=== PATIENT | female | born 1960 | race Caucasian/White ===

== ENCOUNTER 2024-12-29 16:28 | Emergency (ER) | payer MEDICARE, SELFPAY ==
--- OUTSIDE RECORDS SUMMARY | 2024-06-15 09:14 | XMS_ITS ---
Author Organization [facility] Address [address] [place] [address] Care Team Providers Care Child Abuse Worker Name Role Phone Omar Villalobos Unavailable [phone] Encounters Encounter Location Date Provider Diagnosis [facility] [address] [place] [address] 06/15/2024 Omar Villalobos PLAN OF TREATMENT No Information
--- OUTSIDE RECORDS SUMMARY | 2024-12-28 14:42 | XMS_ITS | Encounter Summary ---
Author Organization [facility] Address [address] [place] [address] Care Team Providers Care Hotel Lobby Concierge Name Role Phone Unavailable Primary Care Provider Unavailabl e Encounter Details Date Type Department Care Team (Latest Contact Info) Description 12/28/2024 2:42 PM CDT - 12/28/2024 11:59 PM CDT Hospital Encounter [facility] Imaging Services [address] [id number] Barak Shepherd PA [address] [phone] Arrived Discharge Disposition: Home or Self Care Social History Tobacco Use Types Packs/Day Years Used Date Smoking Tobacco: Never Smokeless Tobacco: Never Alcohol Use Standard Drinks/Week Comments Yes 2 (1 standard drink = 0.6 oz pure alcohol) 2 beers on the weekend but not every weekend Comments No Sex and Gender Information Value Date Recorded Sex Assigned at Not on file Legal Sex Female 2:39 PM CDT Gender Identity Not on file Sexual Orientation Not on file documented as of this encounter Medications at Time of Discharge hydroCHLOROthiazi de 50 mg tablet Take 1 Tablet (50 mg) by mouth daily. 90 Tablet 1 11/21/2024 predniSONE (DELTASONE) 20 mg tablet Take 2 Tablets (40 mg) by mouth daily. 6 Tablet 11/14/2024 cimetidine (TAGAMET) 300 mg tablet Take 1 Tablet (300 mg) by mouth 2 times daily. 3 Tablet 11/14/2024 levothyroxine 88 mcg tablet Take 88 mcg by mouth daily in the morning. aspirin (Jen Low Dose Aspirin) 81 mg Tablet, Delayed Release (E.C.) Take 1 Tablet (81 mg) by mouth daily. 30 Tablet 3 11/11/2024 atorvastatin (LIPITOR) 10 mg tablet TAKE 1 TABLET(10 MG) BY MOUTH DAILY WITH SUPPER 30 Tablet 2 05/09/2022 metoprolol succinate (TOPROL XL) 25 mg Extended Release 24 hour tablet Take 1 Tablet (25 mg) by mouth daily. 30 Tablet 04/09/2022 documented as of this encounter Plan of Treatment Upcoming Encounters Date Type Department Care Team (Late st Contact Info) Description 12/30/2024 3:00 PM CDT Office Visit [facility] Heart and Vascular - [address] [facility] [address] [address] [facility] [address] [place] [address] documented as of this encounter Procedures Procedure Name Priority Date/Time Associated Diagnosis Comments XR RIBS UNILATERAL 2 VW LEFT Routine 12/28/2024 3:02 PM CDT Rib pain documented in this encounter Results * XR RIBS UNILATERAL 2 VW LEFT (12/28/2024 3:02 PM CDT) Anatomical Region Laterality Modality Chest Computed Radiogr aphy 12/28/2024 3:02 PM CDT Impressions 12/29/2024 8:00 AM CDT IMPRESSION: No osseous abnormalities of the left ribs. Narrative 12/29/2024 8:00 AM CDT Unilateral left ribs HISTORY: Rib pain Four views of the left ribs demonstrate no osseous abnormalities. No rib fractures are seen. There is no pneumothorax or pleural effusion. Procedure Note Norma Rasmussen MD - 12/29/2024 Unilateral left ribs HISTORY: Rib pain Four views of the left ribs demonstrate no osseous abnormalities. No rib fractures are seen. There is no pneumothorax or pleural effusion. IMPRESSION: No osseous abnormalities of the left ribs. us Barak Ced [facility] ORDER SOPHIA Final Result documented in this encounter Visit Diagnoses Diagnosis Rib pain Chest pain, unspecified documented in this encounter
[2024-12-29] VITALS (10 sets, daily range): BP systolic 131–164; BP diastolic 60–73; PULSE 64–79; RESP 12–20; TEMP 37.2; O2SAT 96–100
--- NOTE | ~2024-12-29 | CT_ITS ---
EXAMINATION: CT abdomen pelvis wo con DATE: 12/29/2024 18:52 INDICATION: Abdomen pain. Diarrhea. TECHNIQUE: Computed tomography (CT) of the abdomen and pelvis was performed without intravenous contrast. The dose-length product was 212.33 mGy-cm. Automated exposure control and iterative reconstruction technique were employed. COMPARISON: CT dated 09/04/2010 FINDINGS: Lung bases unremarkable. Heart size normal. No significant pleural or pericardial effusion. Status post cholecystectomy. The liver, spleen, pancreas, adrenal glands and kidneys are unremarkable. No significant vascular abnormality. The dose length can't lymphadenopathy. Nonobstructive bowel gas pattern. No evidence for hernia. 3 lag screws transfix the right femoral neck. No free air or free fluid. IMPRESSION: 1. No acute abdominal abnormality. Reviewed, dictated and finalized at location O.
--- OUTSIDE RECORDS SUMMARY | 2024-12-29 16:55 | XMS_ITS | Encounter Summary ---
Author Organization [facility] Address [address] [place] [address] Care Team Providers Care Art Editor Name Role Phone Barak Shepherd Primary Care Provider [phone] Reason for Referral * Diagnostic Imaging (Routine) - Authorized Specialty Diagnoses / Procedures Referred By Contac t Referred To Contact Diagnoses Post-menopause Procedures Dexa Axial Skeleton Bone Density 1 or 2 Site Barak Shepherd PA [address] [address] Phone: tel: fax: External Order Referral ID Status Reason Start Date Expiration Date V isits Requested Visits Authorized [id number] Authorized 12/28/2024 01/27/2026 1 1 Reason for Visit * Reason Onset Date Comments Medical Question/Miscellaneous 12/27/2024 Encounter Details Date Type Department Care Team (Late st Contact Info) Description 12/27/2024 Telephone [facility] Family Medicine [address] [facility] [address] [place] [address] Barak Shepherd PA [address] [address] Medical Question/Miscellaneous Social History Tobacco Use Types Packs/Day Years Used Date Smoking Tobacco: Never Smokeless Tobacco: Never Alcohol Use Standard Drinks/Week Comments Never 0 (1 standard drink = 0.6 oz pur e alcohol) PHQ-2 Answer Date Recorded PHQ-2 Total Score (If total score is 3 or more points, staff should administer the PHQ-9) 0 12/27/2024 AUDIT-C Answer Date Recorded Q1: How often do you have a drink containing alcohol? Never 12/27/2024 Q2: How many drinks containi ng alcohol do you have on a typical day when you are drinking? Patient does not drink Q3: How often do you have si x or more drinks on one occasion? 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 Never 12/27/2024 2:51 PM CDT Conchita Saba MA Q2: How many drinks containing alcohol do you have on a typical day when you are drinking? Patient does not drink 12/27/2024 2:51 PM CDT Conchita Saba MA Q3: How often do you have six or more drinks on one occasion? Never 12/27/2024 2:51 PM CDT Conchita Saba MA documented as of this encounter Miscellaneous Notes * Telephone Encounter - Lizbet Beltran MA - 12/28/2024 8:35 AM CDT Pt is aware, she will go to pharmacy to get the prevnar 20 vaccine. Order for bone density ordered for [facility]. * Telephone Encounter - Gricelda Estrada - 12/28/2024 8:33 AM CDT Call Back Caller???s Concern: Patient returning call to CURTIS Arango reviewed notes and warm transferred her to the backline. Does message need to be routed? No * Telephone Encounter - Conchita Saba MA - 12/27/2024 4:25 PM CDT Left vm for pt to return call, please warm transfer. * Telephone Encounter - Conchita Saba MA - 12/27/2024 4:24 PM CDT Per ROMY EDWARDS: I forgot to discuss Prevnar 20 and DEXA scan. Could you please call patient and notify her that sheis due for both. documented in this encounter Plan of Treatment Scheduled Orders Name Type Priority Associated Diagnoses Orde r Schedule Dexa Axial Skeleton Bone Density 1 or 2 Site Imaging Schedule Routine, Read Routine (OP Routine) Post-menopause Expected: 12/28/2024, Expires: 12/28/2025 documented as of this encounter Visit Diagnoses Diagnosis Post-menopause- Primary Asymptomatic postmenopausal status (age-related) (natural) documented in this encounter Additional Health Concerns Infection Onset Date Last Indicated Resolved Time C. difficile Comment:AUTOMATED NOTE (ADD): C. Difficile - asa, [facility], [id number], ThuApr 07 09:45:41 BLOWER INSULATOR 201004/04/2011 04/04/2011 documented as of this encounter Care Teams Art Editor Relationship Specialty Start Date End Date Barak Shepherd PA [address] [address] PCP - General Family Medicine 05/25/23 documented as of this encounter
--- OUTSIDE RECORDS SUMMARY | 2024-12-29 16:55 | XMS_ITS | Encounter Summary ---
Author Organization [facility] Address [address] [place] [address] Care Team Providers Care Targeting Acquisition Officer Name Role Phone Aarti Cid MD Primary Care Provider [phone] Encounter Details Date Type Department Care Team (Late Contact Info) Description 08/20/2017 Lab Requisition [facility] Laboratory Services [address] [facility] [address] [place] [address] [place]els[place] Woodson [place] [id number] [place] [address] [place] [address] Social History Tobacco Use Types Packs/Day Years Used Date Smoking Tobacco: Never Smokeless Tobacco: Never Alcohol Use Standard Drinks/Week Comments Yes 2 (1 standard drink = 0.6 oz pure alcohol) 2 beers on the weekend but not every weekend Comments Unknown Sex and Gender Information Value Date Recorded Sex Assigned at Not on file Legal Sex Female 2:39 PM CDT Gender Identity Not on file Sexual Orientation Not on file documented as of this encounter Plan of Treatment Upcoming Encounters Date Type Department Care Team (Late st Contact Info) Description 12/30/2024 3:00 PM CDT Office Visit [facility] Heart and Vascular - [address] [facility] [address] [place] [address] documented as of this encounter Procedures Procedure Name Priority Date/Time Associated Diagnosis Comments HEPATITIS B SURFACE AB, QUANT Routine 08/20/2017 7:20 AM CDT documented in this encounter Results * HEPATITIS B SURFACE AB, QUANT (08/20/2017 7:20 AM CDT) HEPATITIS B SURF AB,QN 1,000.0 mlU/mL 08/20/2017 8:02 PM CDT [facility] HEPATITIS B SURFACE AB INTERP Reactive See Interp 08/20/2017 8:02 PM CDT [facility] Blood Collection / Unknown 08/20/2017 7:20 AM CDT 08/20/2017 4:09 PM CDT Narrative [facility] - 08/20/2017 8:02 PM CDT Patient has immunity to Hepatitis B virus. This assay is used to determine immune status to Hepatitis B as greater than or equal to 10 mIU/mL as per CDC guidelines (MMWR:vol 55: RR-16, 2006). us Kelsie Woodson MD CHEMISTRY ORDERABLES Final [facility]ul t [id number] [address] [facility] [place] [address] documented in this encounter Visit Diagnoses Not on filedocumented in this encounter Additional Health Concerns Infection Onset Date Last Indicated Resolved Time R/O C. diff 07/06/2020 07/06/2020 07/06/2020 2:51 PM CDT documented as of this encounter Care Teams Targeting Acquisition Officer Relationship Specialty Start Date End Date Aarti Cid MD [address] [place] [address] PCP - General Internal Medicine 06/02/17 11/10/24 documented as of this encounter
--- OUTSIDE RECORDS SUMMARY | 2024-12-29 16:55 | XMS_ITS | Clinical Summary ---
Author Organization [facility] Address [address] [place] [address] Phone Care Team Providers Care Practice Lead Name Role Phone Unavailable Primary Care Provider Unavailabl e Allergies Active Allergy Reactions Criticality Noted Date Comments Ciprofloxacin Hives High 01/15/2019 Iodinated Contrast Media Itching Low 01/15/2019 Penicillins Hives High 06/02/2017 Sulfa (Sulfonamide Antibiotics) Hives High 12/20 Sulfur Hives High 06/02/2017 Medications metoprolol succinate (TOPROL XL) 25 mg Extended Release 24 hour tablet Take 1 Tablet (25 mg) by mouth daily. 30 Tablet 04/09/2022 Active atorvastatin (LIPITOR) 10 mg tablet TAKE 1 TABLET(10 MG) BY MOUTH DAILY WITH SUPPER 30 Tablet 2 05/09/2022 Active levothyroxine 88 mcg tablet Take 88 mcg by mouth daily in the morning. Active aspirin (Jen Low Dose Aspirin) 81 mg Tablet, Delayed Release (E.C.) Take 1 Tablet (81 mg) by mouth daily. 30 Tablet 3 11/11/2024 Active predniSONE (DELTASONE) 20 mg tablet Take 2 Tablets (40 mg) by mouth daily. 6 Tablet 11/14/2024 Active cimetidine (TAGAMET) 300 mg tablet Take 1 Tablet (300 mg) by mouth 2 times daily. 3 Tablet 11/14/2024 Active hydroCHLOROthia zide 50 mg tablet Take 1 Tablet (50 mg) by mouth daily. 90 Tablet 1 11/21/2024 Active Active Problems Problem Noted Date Diagnosed Date Ventral hernia without obstruction or gangrene 0 06/28/2020 History of seasonal allergies 11/16/2019 Prediabetes 06/28/2019 History of partial colectomy ( diverticulitis) 0 07/31/2017 Thyroid disease 06/05/2017 History of malignant neoplasm of appendix 2013 History of atrial septal defect repair 5 Osteoporosis Resolved Problems Problem Noted Date Diagnosed Date Resolved Date C. difficile colitis 06/05/2017 018 Overview (06/05/2017): History x3 with complications Diverticulitis of intestine with abscess and bleeding 06/05/2017 07/31/2017 History of Clostridium difficile colitis 07/31/2012 06/28/2020 Overview (07/31/2017): Takes Flagyl w/probiotics if anbx are needed Encounters Date Type Department Care Team Description 12/28/2024 2:42 PM CDT - 12/28/2024 11:59 PM CDT Hospital Encounter [facility] Imaging Services [address] [address] Barak Shepherd PA Arrived Discharge Disposition: Home or Self Care 12/27/2024 External Device Data STL ABSTRACTION Provider, Abstract 12/16/2024 2:04 PM CDT - 12/16/2024 11:59 PM CDT Hospital Encounter [facility] Heart and Vascular [facility] [address] [place] [address] Nicolas Grant MD Discharge Disposition: Home or Self Care 11/23/2024 External Device Data STL ABSTRACTION Provider, Abstract 11/22/2024 External Device Data STL ABSTRACTION Provider, Abstract 11/19/2024 11:01 AM CDT - 11/19/2024 11:59 PM CDT Hospital Encounter [facility] Non Invasive Cardiology [address] [place] [address] Nicolas Grant MD Discharge Disposition: Home or Self Care 11/19/2024 11:00 AM CDT - 11/19/2024 11:59 PM CDT Hospital Encounter [facility] Invasive Cardiology [address] [place] [address] Nicolas Grant MD Discharge Disposition: Home or Self Care 11/17/2024 12:30 PM CDT - 11/17/2024 11:59 PM CDT Hospital Encounter [facility] [place] [address] [place] [address] Nicolas Grant MD Discharge Disposition: Home or Self Care 11/17/2024 Results Follow-Up [facility] Heart and Vascular - [address] [place] [address] Nicolas Grant MD CTA CHEST W AND/OR WO CONTRAST 11/15/2024 10:00 AM CDT Video Visit [facility] Heart and Vascular - [address] [place] [address] Beth Dick, GIBRAN Palpitations (Primary Dx); Other chest pain; HTN (hypertension), benign; H/O atrial septal defect repair 11/15/2024 Telephone [facility] Heart and Vascular - [address] [place] [address] Nicolas Grant MD Abnormal Cardiovascular Test 11/14/2024 Telephone [facility] Heart and Vascular - [address] [place] [address] Nicolas Grant MD Contrast Premedication 11/14/2024 Results Follow-Up [facility] - [address] [place] [address] Nicolas Grant MD BRAIN NATRIURETIC PEPTIDE, BNP OR PROBNP, D-DIMER, ECHO COMPLETE W BUBBLE STUDY, Additional followed-up results: 2 11/11/2024 3:00 PM CDT Office Visit [facility] Heart and Vascular - [address] [place] [address] Nicolas Grant MD Palpitations (Primary Dx); Other chest pain; HTN (hypertension), benign; Hypercholesteremia; H/O atrial septal defect repair 11/02/2024 External Device Data STL ABSTRACTION Provider, Abstract 11/02/2024 Orders Only [facility] Heart and Vascular - [address] [place] [address] Provider, Abstract 11/02/2024 External Device Data STL ABSTRACTION Provider, Abstract 11/01/2024 External Device Data STL ABSTRACTION Provider, Abstract 10/07/2024 2:30 PM CDT Ancillary Procedure [facility] [address] [place] [address] Rivas Smith MD Encounter for screening mammogram for malignant neoplasm of breast from Last 3 Months Immunizations Immunization Administration Dates Next Due (RelayRides)(12 YR UP) COVID-19 VACCINE - EMERGENCY USE AUTHORIZATION, MRNA, [id number](PF) 30 MCG/0.3 ML IM SUSP 01/17/2021,04/29/2020,04/08/2020 (SHINGRIX)(50 YRS UP) ZOSTER VACCINE RECOMBINANT, 0.5 ML, IM 01/06/2021,10/13/2020 Influenza Seasonal Unspecifi ed Formulation IM 01/25/2021,12/19/2020,01/24/2020,2019,01/05/2019,02/18/2018,01/08/2018,1 06/11/2016 Family History Medical History Relation Name Comments Heart Attack Father giuseppe Heart Disease Father giuseppe Hypertension Father giuseppe Breast Cancer Maternal Aunt Cancer Mother tyson pancreatic canc er High Cholesterol Mother tyson Pancreatic Cancer Mother tyson SIDS Son VASU Relation Name Status Comments Father giuseppe Maternal Aunt Mother tyson Son VASU Alive Social History Tobacco Use Types Packs/Day Years Used Date Smoking Tobacco: Never Smokeless Tobacco: Never Tobacco Cessation:Counseling Given: Not Answered Alcohol Use Standard Drinks/Week Comments Yes 2 (1 standard drink = 0.6 oz pure alcohol) 2 beers on the weekend but not every weekend Comments No Sex and Gender Information Value Date Recorded Sex Assigned at Not on file Legal Sex Female 2:39 PM CDT Gender Identity Not on file Sexual Orientation Not on file Last Filed Vital Signs Vital Sign Reading Time Taken Comments Blood Pressure 143/65 11/19/2024 12:00 PM CDT Pulse 60 11/15/2024 9:49 AM CDT Temperature 36.8 C (98.2 F) 11/16/2019 9:53 AM CDT Respiratory Rate 17 01/15/2019 12:18 PM CDT Oxygen Saturation 97% 11/11/2024 2:59 PM CDT Inhaled Oxygen Concentration - - Weight 57.6 kg (127 lb) 11/15/2024 9:49 AM CDT Height 167.6 cm (5' 6) 11/15/2024 9:49 AM CDT Body Mass Index 20.5 11/15/2024 9:49 AM CDT Plan of Treatment Upcoming Encounters Date Type Department Care Team (Late st Contact Info) Description 12/30/2024 3:00 PM CDT Office Visit [facility] Heart and Vascular - [address] [facility] [address] [place] [address] Health Maintenance Due Date Last Done Comments DTAP/TDAP/TD VACCINES (1 - Tdap) 1977 FIT-DNA Q 3 years 09/02/2003 FIT/FOBT Q 1 year 09/02/2003 Flex Sig/CT Colonography Q 5 years 09/02/2003 PNEUMOCOCCAL VACCINE 50+ YEA RS (1 of 1 - PCV) 2008 OSTEOPOROSIS SCREENING 09/02/2023 02/03/2014 Medicare Advantage (NM) Preventative Visit/Annual Wellness Visit 04/20/2024 06/28/2020, 06/28/2019, 09/28/2017, Additional history exists COLORECTAL SCREENING 05/21/2024 05/21/2014 (Previously completed), 04/18/2010, 04/20/2009, Additional history exists Colorectal Cancer Screening 05/21/2024 INFLUENZA VACCINE (#1) 2024 , 01/15/2023, 01/29/2022, Additional history exists COVID-19 Vaccine (4 - 2024-2 6 season) 2024 01/17/2021, 04/29/2020, 04/08/2020 BREAST CANCER SCREENING 10/07/2025 10/08/19, 10/07/2024, 10/07/2024, Additional history exists RSV VACCINE (60+ or ) (1 - 1-dose 75+ series) 2033 ZOSTER VACCINE Completed 01/06/2021, 10/13/2020 Procedures Procedure Name Priority Date/Time Associated Diagnosis Comments XR RIBS UNILATERAL 2 VW LEFT Routine 12/28/2024 3:02 PM CDT Rib pain STRESS TEST EXERCISE TREADMILL Routine 12/16/2024 2:39 PM CDT Other chest pain HOLTER MONITOR Routine 11/24/2024 6:18 PM CDT Palpitations ECHO COMPLETE W BUBBLE STUDY Routine 11/19/2024 12:09 PM CDT Other chest pain H/O atrial septal defect repair CTA CHEST W AND/OR WO CONTRAST Stat 11/17/2024 12:54 PM CDT D-dimer, elevated POC CREATININE Routine 11/17/2024 12:48 PM CDT D-DIMER Routine 11/11/2024 3:58 PM CDT Palpitations Other chest pain BRAIN NATRIURETIC PEPTIDE, BNP OR PROBNP Routine 11/11/2024 3:58 PM CDT Palpitations Other chest pain UT ECG ROUTINE ECG W/LEAST 12 LDS W/I&R Routine 11/11/2024 3:00 PM CDT Palpitations MAMMO 3D JAYASHREE SCREEN BILAT W OR WO CAD Routine 10/07/2024 2:03 PM CDT Encounter for screening mammogram for malignant neoplasm of breast XR DEXA BONE DENSITY AXIAL 1 OR MORE SITES Routine 02/03/2014 ENDOSCOPY, COLON, SCREENING Routine 04/18/2010 from Last 3 Months or Most Recently Relevant to Health Maintenance Results * XR RIBS UNILATERAL 2 VW [...] [facility] ORDER SOPHIA Final Result * STRESS TEST EXERCISE TREADMILL (12/16/2024 2:39 PM CDT) EJECTION FRACTION EF: INTERFACE SYSTEM 12/16/2024 3:00 PM CDT Narrative INTERFACE SYSTEM - 12/16/2024 2:59 PM CDT [facility] Heart and Vascular Testing Stress Electrography Endy Protocol Patient: Sari Au Study ID: Gender: F : 1960 Age: 64 Race: RADHA Height 167.6cm Study Date: 12/16/2024 Weight: 57.6kg Access. #: [id number] BP: *Referring Physician:* Fadia Grant MD *Ordering Physician:* Fadia Grant MD revenue accounting manager: Nurse: RICARDO Indications: Chest pain. Shortness of breath Palpitations. History: Risk factors: Hypertension. Family history is significant for coronary artery disease. STUDY CONCLUSIONS: SUMMARY: - Stress ECG conclusions: The stress ECG is negative for ischemia. Rate abated PVC's noted. Godinez scoring: exercise time of 6 min 30 sec; maximum ST deviation of 0mm; no angina; resulting score is 7. This score predicts a low risk of cardiac events. - The patient did not complain of chest discomfort with exercise. - Normal hemodynamic response with exercise. - Stress data: Functional capacity is normal. Impressions: Maximal Exercise Treadmill Stress Test at 87% of predicted heart rate for age, negative for ischemia. Cardiac Anatomy: Baseline ECG: Sinus rhythm 82 bpm, incomplete right bundle branch block, PVC's. Stress protocol: - Baseline HR: 66bpm BP: 130/75 - Peak stress; 6 min 17 sec HR: 134bpm BP: 144/60 - Recovery; 5 min HR: 90bpm BP: 133/70 Stress results: Maximal heart rate during stress was 134bpm (87% of maximal predicted heart rate). The maximal predicted heart rate was 154bpm. The target heart rate was 131bpm. The target heart rate was achieved. The heart rate response to stress is normal. There is a normal resting blood pressure with an appropriate response to stress. The rate-pressure product for the peak heart rate and blood pressure was 02333ou Hg/min. The patient experienced no chest pain during stress. Functional capacity is normal. Treadmill exercise testing was performed using the Endy protocol. The patient exercised for 6 min 17 sec, to protocol stage 3, to a maximal work rate of 7.8mets. Exercise was terminated at the patient's request, moderate dyspnea, and moderate fatigue. Stress ECG: The stress ECG is negative for ischemia. Rate abated PVC's noted. Godinez scoring: exercise time of 6 min 30 sec; maximum ST deviation of 0mm; no angina; resulting score is 7. This score predicts a low risk of cardiac events. Procedure data: MCHOD Consent: The risks, benefits, and alternatives to the procedure were explained to the patient and informed consent was obtained. Procedure information: The patient arrived at the laboratory. A baseline ECG was recorded. Surface ECG leads and automatic cuff blood pressure measurements were monitored. Study completion: There were no complications. Endy protocol. Stress electrography. Birthdate: Patient birthdate: 1960. Age: Patient is 64year(s) old. Sex: gender: female. Height: 167.6cm. 66in. Weight: 57.6kg. 127lb. Body mass index: 20.5kg/m^2. Body surface area: 1.63m^2. Patient status: Outpatient. Study date: Study date: 12/16/2024. Study time: 03:00 PM. Location: Echo laboratory. Prepared and Electronically Authenticated Krishan Garrido [id number] Procedure Note Krishan Garrido MD - 12/16/2024 [facility] Testing Stress Electrography Endy Protocol Patient: Sari Au Study ID: Gender: Ruby : 1960 Age: 64 Race: RADHA Height 167.6cm Study Date: 12/16/2024 Weight: 57.6kg Access. #: [id number] BP: *Referring Physician:* Fadia Grant MD *Ordering Physician:* Fadia Grant MD revenue accounting manager: Nurse: RICARDO Indications: Chest pain. Shortness of breath Palpitations. History: Risk factors: Hypertension. Family history is significant for coronaryartery disease. STUDY CONCLUSIONS: SUMMARY: - Stress ECG conclusions: The stress ECG is negative for ischemia. Rateabated PVC's noted. Godinez scoring: exercise time of 6 min 30 sec; maximum ST deviation of 0mm; no angina; resulting score is 7. This score predicts alow risk of cardiac events. - The patient did not complain of chest discomfort with exercise. - Normal hemodynamic response with exercise. - Stress data: Functional capacity is normal. Impressions: Maximal Exercise Treadmill Stress Test at 87% of predictedheart rate for age, negative for ischemia. Cardiac Anatomy: Baseline ECG: Sinus rhythm 82 bpm, incomplete right bundle branchblock, PVC's. Stress protocol: - Baseline HR: 66bpm BP: 130/75 - Peak stress; 6 min 17 sec HR: 134bpm BP: 144/60 - Recovery; 5 min HR: 90bpm BP: 133/70 Stress results: Maximal heart rate during stress was 134bpm (87% ofmaximal predicted heart rate). The maximal predicted heart rate was 154bpm. Thetarget heart rate was 131bpm. The target heart rate was achieved. The heartrate response to stress is normal. There is a normal resting blood pressurewith an appropriate response to stress. The rate-pressure product for the peakheart rate and blood pressure was 55467gh Hg/min. The patient experienced nochest pain during stress. Functional capacity is normal. Treadmillexercise testing was performed using the Endy protocol. The patient exercised for6 min 17 sec, to protocol stage 3, to a maximal work rate of 7.8mets.Exercise was terminated at the patient's request, moderate dyspnea, and moderate fatigue. Stress ECG: The stress ECG is negative for ischemia. Rate abatedPVC's noted. Godinez scoring: exercise time of 6 min 30 sec; maximum ST deviationof 0mm; no angina; resulting score is 7. This score predicts a low risk of cardiac events. Procedure data: MCHOD Consent: The risks, benefits, and alternatives to the procedurewere explained to the patient and informed consent was obtained. Procedure information: The patient arrived at the laboratory. A baseline ECG was recorded. Surface ECG leads and automatic cuff blood pressuremeasurements were monitored. Study completion: There were no complications. Endy protocol. Stress electrography. Birthdate: Patient birthdate: 1960. Age: Patient is 64year(s) old. Sex: gender:female. Height: 167.6cm. 66in. Weight: 57.6kg. 127lb. Body mass index: 20.5kg/m^2. Body surface area: 1.63m^2. Patient status:Outpatient. Study date: Study date: 12/16/2024. Study time: 03:00 PM. Location:Echo laboratory. 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 Primary rhythm was Sinus Rhythm. Average heart rate was 76 bpm, Minimum heart rate was 56 bpm on Day :49:23 am, Max heart rate was 118 bpm on Day :45:37 am SVE(s): [place] was 0.74 %, 832 total SVE(s) SV Arrhythmia(s): 1 event(s), longest event 5 beats on :00:26 pm, fastest event 103 bpm on :00:26 pm PVC(s): [place] was 4.19 %, 4737 total PVC(s), 1 disparate morphologies Patient recorded 10 event(s) during the monitoring period Impression 1. Sinus rhythm, average rate 76 bpm 2. No significant bradycardia/pauses or AV block 3. Rare premature supraventricular beats, occasional premature ventricular beats (4.19%) 4. No episodes of atrial fibrillation/flutter, supraventricular tachycardia or ventricular tachycardia 5. Patient triggered symptomatic episodes included symptoms of shortness of breath, chest pain/pressure, dizziness/light headedness, heart racing/fluttering correlated to sinus rhythm and mild sinus tachycardia (100-120). 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 Primary rhythm was Sinus Rhythm. Average heart rate was 76 bpm, Minimumheart rate was 56 bpm on Day :49:23 am, Max heart rate was 118 bpm on Day:45:37 am SVE(s): [place] was 0.74 %, 832 total SVE(s) SV Arrhythmia(s): 1 event(s), longest event 5 beats on :00:26pm, fastest event 103 bpm on :00:26 pm PVC(s): [place] was 4.19 %, 4737 total PVC(s), 1 disparate morphologies Patient recorded 10 event(s) during the monitoring period Impression 1. Sinus rhythm, average rate 76 bpm 2. No significant bradycardia/pauses or AV block 3. Rare premature supraventricular beats, occasional premature ventricular beats (4.19%) 4. No episodes of atrial fibrillation/flutter, supraventriculartachycardia or ventricular tachycardia 5. Patient triggered symptomatic episodes included symptoms of shortnessof breath, chest pain/pressure, dizziness/light headedness, heart racing/fluttering correlated to sinus rhythm and mild sinus tachycardia (100-120). Electronically Signed On 12-04-2024 18:15:02 CDT by Garcia Cooper Nicolas Grant MD CARDIAC SERVICES ORDERA BLES Final Result INTERFACE SYSTEM Refer to clinic/hospital department * ECHO COMPLETE W BUBBLE STUDY (11/19/2024 12:09 PM CDT) EJECTION FRACTION 55 INTERFACE SYSTEM 11/19/2024 11:0 3 AM CDT Narrative INTERFACE SYSTEM - 11/19/2024 12:34 PM CDT Transthoracic Echocardiogram Patient: Sari Au Study ID: [id number] Gender: F : 1960 Age: 64 Race: CAU Height 167.6cm Study Date: 11/19/2024 Weight: 57.6kg Access. #: [id number] BP: 143 / 65 *Referring Physician:* Fadia Grant MD, MD, M. Kiran *Ordering Physician:* Fadia Grant MD *Branch Sales And Service Representative:* Ruthann Arriaga RUST revenue accounting manager: Nurse: Indications: Other chest pain, H/O atrial septal defect repair. History: PMH: Syncope. Risk factors: Hypertension. STUDY CONCLUSIONS: SUMMARY: - Left ventricle: The cavity size was normal. Wall thickness was normal. Global systolic function is normal. The estimated ejection fraction is 55-60%. For Epic reporting: the left ventricular ejection fraction is 55% . - Aortic valve: There is thickening, consistent with sclerosis, without stenosis. - Mitral valve: There is mild thickening. Mild regurgitation. - Left atrium: The atrium is normal in size. - Right ventricle: The cavity size is normal. Systolic function is normal. - Atrial septum: Agitated saline contrast study at baseline or with provocation, shows no hgxkk-[id number] atrial level shunt. - Tricuspid valve: Mild regurgitation. - Pulmonary arteries: The peak systolic pressure is 20mm Hg. Cardiac Anatomy: LEFT VENTRICLE: The cavity size was normal. Wall thickness was normal. Global systolic function is normal. The estimated ejection fraction is 55-60%. For Epic reporting: the left ventricular ejection fraction is 55% . Wall motion is normal; there are no regional wall motion abnormalities. Global longitudinal strain was -18.1% (GLS is abnormal if greater than -16, i.e. -15). AORTIC VALVE: Trileaflet. There is thickening, consistent with sclerosis, without stenosis. No significant regurgitation. The mean systolic gradient is 4mm Hg. The peak systolic gradient is 7mm Hg. The LVOT to aortic valve VTI ratio is 0.78. The valve area is 2.5cm^2. The ratio of LVOT to aortic valve peak velocity is 0.72. AORTA: Aortic root: The root is normal-sized. MITRAL VALVE: There is mild thickening. Mild systolic bowing without prolapse. Mild regurgitation. The mean diastolic gradient is 2mm Hg. The peak diastolic gradient is 6mm Hg. LEFT ATRIUM: The atrium is normal in size. ATRIAL SEPTUM: Not well visualized. Agitated saline contrast study at baseline or with provocation, shows no gizwe-cc-iobp atrial level shunt. RIGHT VENTRICLE: The cavity size is normal. Systolic function is normal. PULMONIC VALVE: Poorly visualized. Structurally normal valve. No significant regurgitation. TRICUSPID VALVE: Poorly visualized. Structurally normal valve. Mild regurgitation. RIGHT ATRIUM: The atrium was normal in size. SYSTEMIC VEINS: Inferior vena cava: The IVC is normal-sized. The IVC is normal-sized. Respirophasic diameter changes are in the normal range (> 50%), consistent with normal central venous pressure. PERICARDIUM: There is no pericardial effusion. Measurements Left ventricle Value Ref GLS, 2D -18.1 % --------- IVS, ED, LAX (N) 0.7 cm 0.6 - 0.9 REJI, LAX (L) 3.4 cm 3.8 - 5.2 REJI/bsa, LAX (L) 2.1 cm/m^2 2.3 - 3.1 REJI, LAX chord (N) 4.9 cm 3.8 - 5.2 ESD, LAX chord (N) 3.4 cm 2.2 - 3.5 REJI/bsa, LAX chord (N) 3.0 cm/m^2 2.3 - 3.1 ESD/bsa, LAX chord (N) 2.1 cm/m^2 1.3 - 2.1 FS, LAX chord (N) 31 % 27 - 45 IVS, ED (N) 0.7 cm 0.6 - 0.9 PW, ED (N) 0.8 cm 0.6 - 0.9 EDV, 2-p (N) 97 ml 46 - 106 ESV, 2-p (N) 36 ml 14 - 42 EF, 2-p (N) 63 % 54 - 74 SV, 2-p 61 ml --------- SV/bsa, 2-p 37 ml/m^2 --------- E', med hilaria, TDI (L) 6.4 cm/sec >=7.0 E/e', med hilaria, TDI 10 --------- LVOT Value Ref Diam, S 2.0 cm --------- Area 3.1 cm^2 --------- Peak lety, S 0.93 m/sec --------- VTI, S 23.1 cm --------- Right ventricle Value Ref REJI minor ax, A4C base (N) 3.9 cm 2.5 - 4.1 REJI minor ax, A4C mid (N) 2.7 cm 1.9 - 3.5 REJI major ax, A4C (N) 6.8 cm 5.9 - 8.3 TAPSE, MM (N) 2.1 cm >=1.7 Pressure, S 20 mm Hg --------- S' lateral (L) 9.0 cm/sec >=9.5 Left atrium Value Ref AP dim, ES (N) 3.4 cm 2.7 - 3.8 AP dim index, ES (N) 2.1 cm/m^2 1.5 - 2.3 SI dim, A4C 4.5 cm --------- Area ES, A4C (N) 16 cm^2 <=20 Area/bsa ES, A4C 9.82 cm^2/m^2 --------- SI dim, A2C 4.9 cm --------- SI dim, shorter 4.5 cm --------- Vol, ES, 1-p A2C (N) 43 ml 22 - 52 Vol/bsa, ES, 1-p A2C (N) 26 ml/m^2 13 - 40 Vol, ES, 2-p 44 ml --------- Vol/bsa, ES, 2-p (N) 27 ml/m^2 16 - 34 LA/Ao root ratio 1.21 --------- Right atrium Value Ref SI dim, ES, A4C (N) 4.1 cm 3.4 - 5.3 SI dim/bsa, ES, A4C (N) 2.5 cm/m^2 1.9 - 3.1 Area, ES, A4C (N) 13 cm^2 10 - 18 Vol, ES, 1-p A4C 30 ml --------- Vol/bsa, ES, 1-p A4C (N) 18 ml/m^2 9 - 33 Aortic valve Value Ref Peak v, S 1.3 m/sec --------- Mean v, S 0.94 m/sec --------- VTI, S 29.5 cm --------- Mean grad, S 4 mm Hg --------- Peak grad, S 7 mm Hg --------- LVOT/AV, VTI ratio 0.78 --------- ELLEN, VTI 2.5 cm^2 --------- ELLEN/bsa, VTI 1.49 cm^2/m^2 --------- LVOT/AV, Vpeak ratio 0.72 --------- ELLEN, Vmax 2.3 cm^2 --------- ELLEN/bsa, Vmax 1.36 cm^2/m^2 --------- Mitral valve Value Ref Peak E 0.67 m/sec --------- Peak A 1.02 m/sec --------- PHT 88 ms --------- Mean grad, D 2 mm Hg --------- Peak grad, D 6 mm Hg --------- Peak E/A ratio 0.7 --------- MVA, PHT 2.5 cm^2 --------- MVA/bsa, PHT 1.52 cm^2/m^2 --------- Pulmonic valve Value Ref Peak v, S 0.66 m/sec --------- Peak grad, S 2 mm Hg --------- Tricuspid valve Value Ref Peak E 0.42 m/sec --------- TR peak v (N) 1.9 m/sec <=2.8 Peak RV-RA grad, S 15 mm Hg --------- Aortic root Value Ref Root diam, 2.8 cm --------- Pulmonary artery Value Ref Pressure, S 20 mm Hg --------- Systemic veins Value Ref Estimated RA pressure 5 mm Hg --------- Legend: (L) and (H) sam values outside specified reference range. (N) aldridge values inside specified reference range. Procedure data: [facility] Comparison was made to the study of 08/20/2017. Study status: Routine. Procedure information: A transthoracic echocardiogram was performed. Image quality was adequate. Scanning was performed from the parasternal, apical, and subcostal acoustic windows. A bubble study was performed with agitated saline. Transthoracic echocardiogram. Complete 2D, complete spectral Doppler, and color Doppler. Birthdate: Patient birthdate: 1960. Age: Patient is 64year(s) old. Sex: gender: female. Height: 167.6cm. 66in. Weight: 57.6kg. 127lb. Body mass index: 20.5kg/m^2. Body surface area: 1.65m^2. Heart rate: 64bpm. Blood pressure: 143/65 Patient status: Outpatient. Study date: Study date: 11/19/2024. Study time: 11:03 AM. Location: Echo laboratory. Prepared and Electronically Authenticated Tony Marquez [id number]:03 Procedure Note Tony Marquez MD - 11/19/2024 Transthoracic Echocardiogram Patient: Sari Au Study ID: [id number] Gender: F : 1960 Age: 64 Race: CAU Height 167.6cm Study Date: 11/19/2024 Weight: 57.6kg Access. #: [id number] BP: 143 / 65 *Referring Physician:* Fadia Grant MD, MD, M. Kiran *Ordering Physician:* Fadia Grant MD *Branch Sales And Service Representative:* Ruthann Arriaga RUST revenue accounting manager: Nurse: Indications: Other chest pain, H/O atrial septal defect repair. History: PMH: Syncope. Risk factors: Hypertension. STUDY CONCLUSIONS: SUMMARY: - Left ventricle: The cavity size was normal. Wall thickness was normal. Global systolic function is normal. The estimated ejection fraction is 55-60%. For Epic reporting: the left ventricular ejection fraction is55% . - Aortic valve: There is thickening, consistent with sclerosis, without stenosis. - Mitral valve: There is mild thickening. Mild regurgitation. - Left atrium: The atrium is normal in size. - Right ventricle: The cavity size is normal. Systolic function isnormal. - Atrial septum: Agitated saline contrast study at baseline or with provocation, shows no rvrmo-gf-[id number] atrial level shunt. - Tricuspid valve: Mild regurgitation. - Pulmonary arteries: The peak systolic pressure is 20mm Hg. Cardiac Anatomy: LEFT VENTRICLE: The cavity size was normal. Wall thickness was normal.Global systolic function is normal. The estimated ejection fraction is 55-60%.For Epic reporting: the left ventricular ejection fraction is 55% . Wallmotion is normal; there are no regional wall motion abnormalities. Globallongitudinal strain was -18.1% (GLS is abnormal if greater than -16, i.e. -15). AORTIC VALVE: Trileaflet. There is thickening, consistent withsclerosis, without stenosis. No significant regurgitation. The mean systolicgradient is 4mm Hg. The peak systolic gradient is 7mm Hg. The LVOT to aortic valveVTI ratio is 0.78. The valve area is 2.5cm^2. The ratio of LVOT to aorticvalve peak velocity is 0.72. AORTA: Aortic root: The root is normal-sized. MITRAL VALVE: There is mild thickening. Mild systolic bowing without prolapse. Mild regurgitation. The mean diastolic gradient is 2mm Hg. Thepeak diastolic gradient is 6mm Hg. LEFT ATRIUM: The atrium is normal in size. ATRIAL SEPTUM: Not well visualized. Agitated saline contrast study at baseline or with provocation, shows no fyuau-uy-vkpx atrial level shunt. RIGHT VENTRICLE: The cavity size is normal. Systolic function isnormal. PULMONIC VALVE: Poorly visualized. Structurally normal valve. No significant regurgitation. TRICUSPID VALVE: Poorly visualized. Structurally normal valve. Mild regurgitation. RIGHT ATRIUM: The atrium was normal in size. SYSTEMIC VEINS: Inferior vena cava: The IVC is normal-sized. The IVC is normal-sized. Respirophasic diameter changes are in the normal range (> 50%),consistent with normal central venous pressure. PERICARDIUM: There is no pericardial effusion. Measurements Left ventricle Value Ref GLS, 2D -18.1 % --------- IVS, ED, LAX (N) 0.7 cm 0.6 - 0.9 REJI, LAX (L) 3.4 cm 3.8 - 5.2 REJI/bsa, LAX (L) 2.1 cm/m^2 2.3 - 3.1 REJI, LAX chord (N) 4.9 cm 3.8 - 5.2 ESD, LAX chord (N) 3.4 cm 2.2 - 3.5 REJI/bsa, LAX chord (N) 3.0 cm/m^2 2.3 - 3.1 ESD/bsa, LAX chord (N) 2.1 cm/m^2 1.3 - 2.1 FS, LAX chord (N) 31 % 27 - 45 IVS, ED (N) 0.7 cm 0.6 - 0.9 PW, ED (N) 0.8 cm 0.6 - 0.9 EDV, 2-p (N) 97 ml 46 - 106 ESV, 2-p (N) 36 ml 14 - 42 EF, 2-p (N) 63 % 54 - 74 SV, 2-p 61 ml --------- SV/bsa, 2-p 37 ml/m^2 --------- E', med hilaria, TDI (L) 6.4 cm/sec >=7.0 E/e', med hilaria, TDI 10 --------- LVOT Value Ref Diam, S 2.0 cm --------- Area 3.1 cm^2 --------- Peak lety, S 0.93 m/sec --------- VTI, S 23.1 cm --------- Right ventricle Value Ref REJI minor ax, A4C base (N) 3.9 cm 2.5 - 4.1 REJI minor ax, A4C mid (N) 2.7 cm 1.9 - 3.5 REJI major ax, A4C (N) 6.8 cm 5.9 - 8.3 TAPSE, MM (N) 2.1 cm >=1.7 Pressure, S 20 mm Hg --------- S' lateral (L) 9.0 cm/sec >=9.5 Left atrium Value Ref AP dim, ES (N) 3.4 cm 2.7 - 3.8 AP dim index, ES (N) 2.1 cm/m^2 1.5 - 2.3 SI dim, A4C 4.5 cm --------- Area ES, A4C (N) 16 cm^2 <=20 Area/bsa ES, A4C 9.82 cm^2/m^2 --------- SI dim, A2C 4.9 cm --------- SI dim, shorter 4.5 cm --------- Vol, ES, 1-p A2C (N) 43 ml 22 - 52 Vol/bsa, ES, 1-p A2C (N) 26 ml/m^2 13 - 40 Vol, ES, 2-p 44 ml --------- Vol/bsa, ES, 2-p (N) 27 ml/m^2 16 - 34 LA/Ao root ratio 1.21 --------- Right atrium Value Ref SI dim, ES, A4C (N) 4.1 cm 3.4 - 5.3 SI dim/bsa, ES, A4C (N) 2.5 cm/m^2 1.9 - 3.1 Area, ES, A4C (N) 13 cm^2 10 - 18 Vol, ES, 1-p A4C 30 ml --------- Vol/bsa, ES, 1-p A4C (N) 18 ml/m^2 9 - 33 Aortic valve Value Ref Peak v, S 1.3 m/sec --------- Mean v, S 0.94 m/sec --------- VTI, S 29.5 cm --------- Mean grad, S 4 mm Hg --------- Peak grad, S 7 mm Hg --------- LVOT/AV, VTI ratio 0.78 --------- ELLEN, VTI 2.5 cm^2 --------- ELLEN/bsa, VTI 1.49 cm^2/m^2 --------- LVOT/AV, Vpeak ratio 0.72 --------- ELLEN, Vmax 2.3 cm^2 --------- ELLEN/bsa, Vmax 1.36 cm^2/m^2 --------- Mitral valve Value Ref Peak E 0.67 m/sec --------- Peak A 1.02 m/sec --------- PHT 88 ms --------- Mean grad, D 2 mm Hg --------- Peak grad, D 6 mm Hg --------- Peak E/A ratio 0.7 --------- MVA, PHT 2.5 cm^2 --------- MVA/bsa, PHT 1.52 cm^2/m^2 --------- Pulmonic valve Value Ref Peak v, S 0.66 m/sec --------- Peak grad, S 2 mm Hg --------- Tricuspid valve Value Ref Peak E 0.42 m/sec --------- TR peak v (N) 1.9 m/sec <=2.8 Peak RV-RA grad, S 15 mm Hg --------- Aortic root Value Ref Root diam, 2.8 cm --------- Pulmonary artery Value Ref Pressure, S 20 mm Hg --------- Systemic veins Value Ref Estimated RA pressure 5 mm Hg --------- Legend: (L) and (H) sam values outside specified reference range. (N) aldridge values inside specified reference range. Procedure data: [facility] Comparison was made to the study of 08/20/2017. Studystatus: Routine. Procedure information: A transthoracic echocardiogram was performed. Image quality was adequate. Scanning was performed from the parasternal, apical, and subcostal acoustic windows. A bubble study was performed with agitated saline. Transthoracic echocardiogram. Complete 2D, complete spectral Doppler, and color Doppler. Birthdate: Patient birthdate: 1960. Age: Patient is 64year(s) old. Sex: gender: female. Height: 167.6cm. 66in. Weight: 57.6kg. 127lb. Bodymass index: 20.5kg/m^2. Body surface area: 1.65m^2. Heart rate:64bpm. Blood pressure: 143/65 Patient status: Outpatient. Study date:Study date: 11/19/2024. Study time: 11:03 AM. Location: Echo laboratory. Prepared and Electronically Authenticated Tony Marquez [id number]:03 Nicolas Yunier Grant MD ORDERABLES Final R esult INTERFACE SYSTEM Refer to clinic/hospital department * CTA CHEST W AND/OR WO CONTRAST (11/17/2024 12:54 PM CDT) Anatomical Region Laterality Modality Chest Computed Tomogra phy 11/17/2024 12:4 8 PM CDT Impressions 11/17/2024 1:04 PM CDT IMPRESSION: 1. No pulmonary embolism. 2. Clustered tree-in-bud micronodular opacities in the left upper lobe compatible with bronchiolitis which is likely infectious in etiology. The examination was performed with the adjustment of mA according to the patient size and/or the use of Iterative Reconstruction Technique. DICTATION LOCATION: Location 4 Narrative 11/17/2024 1:04 PM CDT EXAM: CTA CHEST W AND/OR WO CONTRAST DATE: 11/17/2024 12:54 PM HISTORY: Pulmonary embolism (PE) suspected, low to intermediate prob, positive D-dimer. Chest pain and shortness of breath COMPARISON: None. TECHNIQUE: Multislice helical axial imaging with intravenous contrast utilizing angiographic technique. Multiplanar postprocessed maximum intensity projection (MIP) images were created. CONTRAST: IOPAMIDOL 61 % INTRAVENOUS SOLUTION (MULTI-DOSE BULK PACK) Given:90 mL FINDINGS: MEDIASTINUM AND BOBBY: No mass. No adenopathy. HEART: The heart size is normal. No pericardial effusion. Coronary artery calcifications are present. AORTA: Normal caliber thoracic aorta. There is no aortic dissection. Mild atherosclerosis is present. PULMONARY ARTERIES: No pulmonary embolism PLEURA: No pleural effusion. No pneumothorax. LUNGS: No confluent airspace consolidation. There are clustered micronodular tree-in-bud opacities in the lateral aspect of the left upper lobe compatible with respiratory bronchiolitis. AIRWAY: No central endoluminal lesion. BONES/CHEST WALL: Prior median sternotomy. Mild thoracic spine degeneration. No destructive osseous lesions. UPPER ABDOMEN: Cholecystectomy ADDITIONAL: None Procedure Note Ayush Hutton III, MD - 11/17/2024 EXAM: CTA CHEST W AND/OR WO CONTRAST DATE: 11/17/2024 12:54 PM HISTORY: Pulmonary embolism (PE) suspected, low to intermediate prob, positive D-dimer. Chest pain and shortness of breath COMPARISON: None. TECHNIQUE: Multislice helical axial imaging with intravenous contrast utilizing angiographic technique. Multiplanar postprocessed maximum intensity projection (MIP) images were created. CONTRAST: IOPAMIDOL 61 % INTRAVENOUS SOLUTION (MULTI-DOSE BULK PACK) Given:90 mL FINDINGS: MEDIASTINUM AND BOBBY: No mass. No adenopathy. HEART: The heart size is normal. No pericardial effusion. Coronary artery calcifications are present. AORTA: Normal caliber thoracic aorta. There is no aortic dissection. Mild atherosclerosis is present. PULMONARY ARTERIES: No pulmonary embolism PLEURA: No pleural effusion. No pneumothorax. LUNGS: No confluent airspace consolidation. There are clustered micronodular tree-in-bud opacities in the lateral aspect of the left upper lobe compatible with respiratory bronchiolitis. AIRWAY: No central endoluminal lesion. BONES/CHEST WALL: Prior median sternotomy. Mild thoracic spine degeneration. No destructive osseous lesions. UPPER ABDOMEN: Cholecystectomy ADDITIONAL: None IMPRESSION: 1. No pulmonary embolism. 2. Clustered tree-in-bud micronodular opacities in the left upper lobe compatible with bronchiolitis which is likely infectious in etiology. The examination was performed with the adjustment of mA according to the patient size and/or the use of Iterative Reconstruction Technique. DICTATION LOCATION: Location [address] Nicolas Yunier [address] MD CT ORDERABLES Final R esult * (ABNORMAL) POC CREATININE (11/17/2024 12:48 PM CDT) CREATININE POC 1.20(H) 0.50 - 1.00 mg/dL 11/17/2024 12:48 PM CDT [facility] GFR POC 50(L) >=60 mL/min/1.7 3 sq meter 11/17/2024 12:48 PM CDT [facility] Comment:eGFR calculated with 2020 CKD-EPI equation. Vegetarian diet, extremely high or low muscle mass, and may affect results. Cystatin C with Glomerular Filtration Rate is a suitable alternative for these patients. Blood, whole 11/17/2024 12:4 8 PM CDT 11/17/2024 12:52 PM CDT Nicolas Grant MD POINT OF CARE TESTING F inal Result [facility] [id number] [address] [place] [address] * (ABNORMAL) D-DIMER (11/11/2024 3:58 PM CDT) D-DIMER QUANT 0.60(H) <0.50 mcg/mL FEU [facility] Comment: Elevated D-dimer levels are associated with DIC, malignancies, inflammation, sepsis, surgery, trauma, and . A D-dimer result less than 0.5 mcg/mL FEU, in conjunction with a non-high clinical pre-test probability assessment model, excludes deep vein thrombosis and pulmonary embolism. However, since D-dimer values increase with age, the [employer] [employer] recommends an age-adjusted cut-off value in patients older than 50. The calculation for an age adjusted cut-off value is age (years) x 0.01 mcg/mL FEU. For example, the cut-off for a 70-year-old patient would be 68 x 0.01 mcg/mL FEU. For additional information, please refer to http://education.[employer]/faq/GIK957 (This link is being provided for informational/educational purposes only.) Test Performed at: [facility] [address] [place] [address] Suzanne Perry MD Blood 11/11/2024 3:58 PM CDT 11/11/2024 3:58 PM CDT Nicolas Grant MD HEMATOLOGY ORDERABLES F inal Result Performing Organization Address City/[facility]/ZIP Co de Phone Number [facility] [phone] [facility] [address] [place] [address] * (ABNORMAL) BRAIN NATRIURETIC PEPTIDE, BNP OR PROBNP (11/11/2024 3:58 PM CDT) PROBNP, N TERMINAL 400(H) <125 pg/mL [facility] Comment: Test Performed at: [facility] [address] [place] [id number] Suzanne Perry MD Blood 11/11/2024 3:58 PM CDT 11/11/2024 3:58 PM CDT Nicolas Grant MD CHEMISTRY ORDERABLES Fi nal Result Performing Organization Address [facility] Co de Phone Number [facility] [phone] [facility] [address] [place] [address] * UT ECG ROUTINE ECG W/LEAST 12 LDS W/I&R (11/11/2024 3:00 PM CDT) Narrative [facility] [address] [place] [address] - 11/11/2024 3:00 PM CDT Nicolas Grant MD 11/11/2024 3:36 PM EKG Date/Time: 11/11/2024 3:00 PM Performed by: Nicolas Grant MD Authorized by: Nicolas Grant MD Rhythm: sinus rhythm Ectopy: PVCs BPM: 77 Conduction: incomplete RBBB Clinical impression: abnormal ECG Procedure Note Nicolas Grant MD - 11/11/2024 3:31 PM CDT [facility] Sari Wilson Faustino 11/11/24 A consult was requested by *No primary care provider on file. to provideadvice and opinion on this patient for Chief Complaint Patient presents with Establish Care Palpitations The author of this note, patient (or authorized education courses sales representative), and allother persons present consent to the audio recording of this visit forcharting documentation purposes. Chief Complaint Patient presents with Establish Care Palpitations Primary Care Physician: No primary care provider on file. Subjective: HPI: Sari Au is 64 y.o. female History of Present Illness The patient presents for evaluation of palpitations, chest tightness, andshortness of breath. She is accompanied by her . A few weekends ago, she experienced a near-syncopal episode while walkingwith her daughter around 9 AM in hot weather. She describes a sensation ofimpending fainting, accompanied by a racing heart, but did not loseconsciousness or experience dizziness. She has been experiencing frequentepisodes of rapid heartbeat, even during rest or conversation, but nottypically when lying down. She reports no chest pain but mentions afeeling of tightness, which she attributes to anxiety. She describes thesensation as a band-like pressure around her chest, rather than sharppain. She also experiences shortness of breath during physical activitiessuch as walking or climbing stairs. She reports no fevers, cough, joint pain, or abdominal pain. Rest ofreview of symptoms are negative. She has no history of smoking or vaping. She has a history of atrial septal defect (ASD) repair 30 years ago buthas not had any other heart surgeries. She has a history of hypertension and is currently on metoprolol twicedaily and hydrochlorothiazide once daily. She has lost significant weightrecently and believes her blood pressure is now within the normal range. Her thyroid medication was recently reduced from 125 to 88 due to abnormallab results. She is scheduled for a follow-up lab test in 4 weeks. She takes icot-jcn-sszeexd Excedrin for headaches. She has beenexperiencing ear popping recently and has been using alcohol drops forrelief. PAST SURGICAL HISTORY: ASD repair 30 years ago. SOCIAL HISTORY Marital Status: Lives with . 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 Tobacco: Does not smoke or vape. Review of symptoms: ROS Past Medical History: Diagnosis Date C. 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 Hx of abnormal cervical Pap smear Hypertension 2014 IBS (irritable bowel syndrome) Osteoporosis Syncope 10/29/2024 Thyroid disease 06/05/2017 Past Surgical History: Procedure Laterality Date DILATION AND CURETTAGE 1999 HX APPENDECTOMY 2012 HX ASD REPAIR 1993 HX CHOLECYSTECTOMY 2000 HX COLECTOMY PARTIAL / TOTAL 2012 HX CRYOSURGERY OF THE CERVIX 1989 HX EXCISION / BIOPSY BREAST / NIPPLE / DUCT 1982 HX EXCISIONAL BIOPSY Right 1983 & 85 can't see scar HX HEART CATHETERIZATION 1994 HX HEART SURGERY 1994 HX HIP FRACTURE TX 2012 HX HYSTERECTOMY HX INCISIONAL BREAST BIOPSY 1983, 1984 HX LEEP PROCEDURE 1989 HX PARTIAL HYSTERECTOMY 2000 HX TONSIL AND ADENOIDECTOMY 1966 HX TONSILLECTOMY 1966 HX TUBAL LIGATION 1988 Social History Socioeconomic History Marital status: Spouse name: Not on file Number of children: Not on file Years of education: Not on file Highest education level: Not on file Occupational History Not on file Tobacco Use Smoking status: Never Smokeless tobacco: Never Substance and Sexual Activity Alcohol use: Yes Alcohol/week: 2.0 standard drinks of alcohol Types: 2 Cans of beer per week Comment: 2 beers on the weekend but not every weekend Drug use: No Sexual activity: Yes Partners: Male Other Topics Concern Service Not Asked Blood Transfusions Not Asked Caffeine Concern Not Asked Occupational Exposure Not Asked Hobby Hazards Not Asked Sleep Concern Not Asked Stress Concern Not Asked Weight Concern Not Asked Special Diet Not Asked Back Care Not Asked Exercise No Bike Helmet Not Asked Seat Belt Yes Self-Exams Yes Social History Narrative Not on file Social Drivers of Health Food Insecurity: Not on file Transportation Needs: Not on file Feeling Safe: Not on file Housing Stability: Not on file Family History Problem Relation Name Age of Onset Heart Disease Father giuseppe Hypertension Father giuseppe Heart Attack Father giuseppe Cancer Mother tyson pancreatic cancer High Cholesterol Mother tyson Pancreatic Cancer Mother tyson Breast Cancer Maternal Aunt SIDS Son VASU Allergies Allergen Reactions Ciprofloxacin Hives Penicillins Hives Sulfa (Sulfonamide Antibiotics) Hives Sulfur Hives Iodinated Contrast Media Itching Current Outpatient Medications Medication Sig Dispense Refill levothyroxine 88 mcg tablet Take 88 mcg by mouth daily in the morning. atorvastatin (LIPITOR) 10 mg tablet TAKE 1 TABLET(10 MG) BY MOUTH DAILYWITH SUPPER 30 Tablet 2 metoprolol succinate (TOPROL XL) 25 mg Extended Release 24 hour tabletTake 1 Tablet (25 mg) by mouth daily. 30 Tablet 0 HYDROCHLOROTHIAZIDE 25 mg tablet TAKE 1 TABLET(25 MG) BY MOUTH DAILY 30Tablet 2 No current facility-administered medications for this visit. Outpatient Medications Marked as Taking for the 11/11/24 encounter (OfficeVisit) with Nicolas Grant MD Medication Sig Dispense Refill levothyroxine 88 mcg tablet Take 88 mcg by mouth daily in the morning. atorvastatin (LIPITOR) 10 mg tablet TAKE 1 TABLET(10 MG) BY MOUTH DAILYWITH SUPPER 30 Tablet 2 metoprolol succinate (TOPROL XL) 25 mg Extended Release 24 hour tabletTake 1 Tablet (25 mg) by mouth daily. 30 Tablet 0 HYDROCHLOROTHIAZIDE 25 mg tablet TAKE 1 TABLET(25 MG) BY MOUTH DAILY 30Tablet 2 Objective: Physical Exam: Vitals: 11/11/24 1459 BP: 106/64 BP Location: Left arm Patient Position (BP): Sitting BP Cuff Size: Adult Pulse: 78 SpO2: 97% Weight: 58.1 kg (128 lb) Height: 5' 6 (1.676 m) General - Alert, oriented, comfortable. Well nourished, HEENT - normocephalic without trauma, mucosa moist and pink. 7 cm jvp. Nothyromegaly, 2+ carotids without bruits. Trachea midline Lungs: Clear to auscultation bilaterally. Normal respiratory effort Heart: Regular rate and rhythm, normal S1, S2 No gallops or rubs. Nomurmur. Abdomen: Soft, Non-tender, non-distended. No hepatomegaly, Bowel soundpositive. Extremities: No clubbing or cyanosis, no edema Good distal pulsesbilaterally. Psych: Appropriate mood and affect Neuro: Alert and oriented x 3. Musculoskeletal - good strength bilaterally for current condition. Skin - warm and dry; no rashes seen Physical Exam Lab Results Component Value Date/Time CHOLTOT 140 06/29/2020 07:27 AM HDL 55 06/29/2020 07:27 AM LDLCALC 70 06/29/2020 07:27 AM TRIGLYCERIDE 76 06/29/2020 07:27 AM Lab Results Component Value Date/Time ALT 23 06/29/2020 07:27 AM AST 23 06/29/2020 07:27 AM ALKPHOS 84 06/29/2020 07:27 AM Lab Results Component Value Date/Time BUN 18 06/29/2020 07:27 AM CREAT 0.82 06/29/2020 07:27 AM K 3.8 06/29/2020 07:27 AM Results Diagnostic Testing - EK11/11/2024, Natural heart rate with no abnormal rhythm, couple ofextra beats noted. CARDIOVASCULAR PROCEDURES: ECG EKG Date/Time: 11/11/2024 3:00 PM Performed by: Nicolas Grant MD Authorized by: Nicolas Gratn MD Rhythm: sinus rhythm Ectopy: PVCs BPM: 77 Conduction: incomplete RBBB Clinical impression: abnormal ECG Assessment & Plan 1. Palpitations: - EKG results reviewed; no abnormal rhythms, only a few extra beats. - 24-hour Holter monitor to assess for any fast abnormal heart rhythmsduring episodes of palpitations. - Echocardiogram to evaluate cardiac function. 2 History of ASD repair. - Bubble study included in the echocardiogram to ensure the ASD closuredevice is functioning properly. Start aspirin once daily. 3. Chest tightness: - Described as a band around the chest, possibly related to anxiety. - Echocardiogram and stress test to rule out any cardiac causes. 4 Shortness of breath: - Occurs when walking or climbing stairs. - Echocardiogram and stress test to evaluate for any underlying cardiacissues. - D-dimer test to rule out pulmonary embolus or other lung-relatedissues. 5 Hypertension: - Blood pressure well-controlled at 106/60 mmHg on current regimen. - Continue current medications: hydrochlorothiazide in the morning andmetoprolol twice a day. 6 . Thyroid management: - Thyroid medication recently adjusted from 125 mcg to 88 mcg due toabnormal lab results. - Thyroid levels to be rechecked in about 4 weeks to ensure properdosing. Orders from today Orders Placed This Encounter BRAIN NATRIURETIC PEPTIDE, BNP OR PROBNP D-DIMER HOLTER MONITOR STRESS TEST EXERCISE TREADMILL ECHO COMPLETE W BUBBLE STUDY Followup plans: Return if symptoms worsen or fail to improve. with Miller/DAIRY NUTRITION CONSULTANT The patient was instructed to call with any change in condition orsymptoms. I would like to thank you for allowing me to participate in this patient'scare. If you have any questions regarding the patients today, please donot hesitate to contact me at any time. This note was automatically generated by a Generative AI technology([email or web address]), reviewed, edited, and finalized by Jaime Grant MD. Fadia Grant MD, [facility] Nicolas Grant MD ECG ORDERABLES Edited Result - Final [facility] [id number] [facility]# [id number] [address] [place] [id number] * MAMMO 3D JAYASHREE SCREEN BILAT W OR WO CAD (10/07/2024 2:03 PM CDT) Anatomical Region Laterality Modality Breast Bilateral Mammography 10/07/2024 2:03 PM CDT Impressions 10/07/2024 4:07 PM CDT IMPRESSION: Stable bilateral screening mammogram. Recommend routine yearly followup. OVERALL FINAL ASSESSMENT: BI-RADS CATEGORY 2: Benign findings Narrative 10/07/2024 4:07 PM CDT BILATERAL SCREENING DIGITAL MAMMOGRAM WITH 3D TOMOSYNTHESIS AND CAD DATE: 10/07/2024 2:03 PM HISTORY: Annual screening study. COMPARISON: Mammograms back to 2009 TECHNIQUE: CC and MLO views of the breasts were obtained digitally and reviewed with CAD. Tomosynthesis was performed in all projections. BREAST COMPOSITION: Scattered fibroglandular densities FINDINGS: No new or suspicious masses, suspicious calcifications, or areas of asymmetry or distortion are identified. Coarse benign calcifications are present bilaterally. Rivas Smith MD MAMMO ORDERABLES Final Result * XR DEXA BONE DENSITY AXIAL 1 OR MORE SITES (02/03/2014) Anatomical Region Laterality Modality Other us Abstract Provider DIAGNOSTIC IMAGING ORDERABLES Edited Result - Final * ENDOSCOPY, COLON, SCREENING (04/18/2010) us Abstract Provider GI PROCEDURE ORDERABLES Final Result [facility] INTERNAL MEDICINE [facility]# [id number] [address] [place] [id number] from Last 3 Months or Most Recently Relevant to Health Maintenance Insurance RX [employer] RX Member Subscriber Plan / Payer (Ef fective 2021-Present) Name:Sari Au Relation to Subscriber:Not on file Name:Sari Au Subscriber ID:Not on file Date of :1960 Payer ID:Not on file Group ID:[id number] Type:RX Commercial Address: [place] RX MED[employer] Member Subscriber Plan / Payer (Ef fective for All Dates) Name:SARI AU Relation to Subscriber:Self Name:Sari Au Payer ID:Not on file Group ID:[id number] Type:RX Commercial Address: [place] [address] INDIVIDUAL EXCHANGE [address] [facility] [address] [place] [id number]
--- OUTSIDE RECORDS SUMMARY | 2024-12-29 16:55 | XMS_ITS | Encounter Summary ---
Author Organization [facility] Healthcare Address [address] [place] [address] Care Team Providers Care Petroleum Geology Faculty Member Name Role Phone Barak Shepherd Primary Care Provider [phone] Encounter Details Date Type Department Care Team (Late st Contact Info) Description 12/29/2024 Results Follow-Up [facility] Family Medicine [address] [place] [address] Barak Shepherd PA [address] [place] [address] XR Ribs Left 2 Views Social History Tobacco Use Types Packs/Day Years [...] on file 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 Yes-Action Needed documented in this encounter Plan of Treatment Not on file documented as of this encounter Visit Diagnoses Not on filedocumented in this encounter Additional Health Concerns Infection Onset Date Last Indicated Resolved Time C. difficile Comment:AUTOMATED NOTE (ADD): C. Difficile - contact, [facility], [id number], ThuApr 07 09:45:41 BAKERY HELPER 201004/04/2011 04/04/2011 documented as of this encounter Care Teams Petroleum Geology Faculty Member Relationship Specialty Start Date End Date Barak Shepherd PA [address] [address] PCP - General Family Medicine 05/25/23 documented as of this encounter
--- OUTSIDE RECORDS SUMMARY | 2024-12-29 16:55 | XMS_ITS | Encounter Summary ---
Author Organization [facility] Healthcare Address [address] [place] [address] Care Team Providers Care Hat Block Maker Name Role Phone Barak Shepherd Primary Care Provider [phone] Reason for Visit * Reason Onset Date Comments Test Results 12/29/2024 Encounter Details Date Type Department Care Team (Late st Contact Info) Description 12/29/2024 Telephone [facility] Family Medicine [address] [place] [address] Barak Shepherd PA [address] [place] [address] Test Results Social History Tobacco Use Types Packs/Day Years [...] on file 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 Did not get a chance to get the location Did provider dictate result yet? No Additional Questions/Comments: Patient received results via fax at her work, and will be faxing a copy over as well. Does message need to be routed? Yes-Action Needed documented in this encounter Plan of Treatment Not on file documented as of this encounter Visit Diagnoses Not on filedocumented in this encounter Additional Health Concerns Infection Onset Date Last Indicated Resolved Time C. difficile Comment:AUTOMATED NOTE (ADD): C. Difficile - contact, [facility], [id number], ThuApr 07 09:45:41 POLISHER ALUMINUM 201004/04/2011 04/04/2011 documented as of this encounter Care Teams Hat Block Maker Relationship Specialty Start Date End Date Barak Shepherd PA [address] [address] PCP - General Family Medicine 05/25/23 documented as of this encounter
--- OUTSIDE RECORDS SUMMARY | 2024-12-29 16:55 | XMS_ITS | Encounter Summary ---
Author Organization [facility] Address [address] [place] [address] Care Team Providers Care Palliative Nurse Name Role Phone Aarti Cid MD Primary Care Provider [phone] Encounter Details Date Type Department Care Team (Late st Contact Info) Description 04/10/2017 Lab Requisition [facility] General Laboratory Services [address] [facility] [address] [place] [address] [facility], External Provider [address] [place] [address] Encounter for pre-employment examination Social History Tobacco Use Types Packs/Day Years Used Date Smoking Tobacco: Never Assessed Comments Unknown Sex and Gender Information Value Date Recorded Sex Assigned at Not on file Legal Sex Female 2:39 PM CDT Gender Identity Not on file Sexual Orientation Not on file documented as of this encounter Plan of Treatment Upcoming Encounters Date Type Department Care Team (Late st Contact Info) Description 12/30/2024 3:00 PM CDT Office Visit [facility] Heart [facility] Vascular - [address] [place] [address] documented as of this encounter Procedures Procedure Name Priority Date/Time Associated Diagnosis Comments HEPATITIS B SURFACE AB, QUANT Routine 04/10/2017 10:37 AM ASSISTANT GM OF CONTENT & DELIVERY Encounter for pre-employment examination RUBEOLA IGG Routine 04/10/2017 10:37 AM ASSISTANT GM OF CONTENT & DELIVERY Encounter for pre-employment examination RUBELLA IGG Routine 04/10/2017 10:37 AM ASSISTANT GM OF CONTENT & DELIVERY Encounter for pre-employment examination VARICELLA ZOSTER IGG Routine 04/10/2017 10:37 AM ASSISTANT GM OF CONTENT & DELIVERY Encounter for pre-employment examination MUMPS IGG ANTIBODY Routine 04/10/2017 10 :37 AM ASSISTANT GM OF CONTENT & DELIVERY Encounter for pre-employment examination documented in this encounter Results * VARICELLA ZOSTER IGG (04/10/2017 10:37 AM ASSISTANT GM OF CONTENT & DELIVERY) VZV IGG Positive 04/11/2017 12:09 PM ASSISTANT GM OF CONTENT & DELIVERY [facility] Comment: Results suggest response to immunization or prior exposure to the virus. REFERENCE VALUE Vaccinated: Positive (>=1.1 AI) Unvaccinated: Negative (<=0.8 AI) VARICELLA IGG INDEX 1.9 04/11/2017 12:09 PM ASSISTANT GM OF CONTENT & DELIVERY [facility] Comment: Test Performed by: [facility] [address] [place] [address] Blood Collection / Unknown 04/10/2017 10:37 AM ASSISTANT GM OF CONTENT & DELIVERY 04/10/2017 4:18 PM ASSISTANT GM OF CONTENT & DELIVERY External Provider [facility] CHEMISTRY ORDERABLES Fin al Result Performing Organization Address City/[facility]/ZIP Co de Phone Number [facility] * RUBELLA IGG (04/10/2017 10:37 AM ASSISTANT GM OF CONTENT & DELIVERY) RUBELLA IGG IMMUNE Immune - Positive 04/10/2017 5:01 PM ASSISTANT GM OF CONTENT & DELIVERY [facility] Blood Collection / Unknown 04/10/2017 10:37 AM ASSISTANT GM OF CONTENT & DELIVERY 04/10/2017 4:18 PM ASSISTANT GM OF CONTENT & DELIVERY Narrative [facility] - 04/10/2017 5:01 PM ASSISTANT GM OF CONTENT & DELIVERY A positive result suggests response to immunization or prior exposure to the virus. External Provider [facility] CHEMISTRY ORDERABLES Fin al Result [facility] CLIA# [id number] [address] [place] [address] * MUMPS IGG ANTIBODY (04/10/2017 10:37 AM ASSISTANT GM OF CONTENT & DELIVERY) MUMPS IGG AB Negative 04/11/2017 12:09 PM ASSISTANT GM OF CONTENT & DELIVERY [facility] Comment: REFERENCE VALUE Vaccinated: Positive (>=1.1 AI) Unvaccinated: Negative (<=0.8 AI) MUMPS IGG INDEX <0.2 7 12:09 PM [facility] Comment: Test Performed by: [place] [address] Blood Collection / Unknown 04/10/2017 10:37 AM ASSISTANT GM OF CONTENT & DELIVERY 04/10/2017 4:18 PM [facility] External Provider [facility] CHEMISTRY ORDERABLES Fin al Result [facility] * RUBEOLA IGG (04/10/2017 10:37 AM [facility]) Pathologist [facility] RUBEOLA IGG Positive 04/11/2017 12:09 PM [facility] Comment: Results suggest response to immunization or prior exposure to the virus. REFERENCE VALUE Vaccinated: Positive (>=1.1 AI) Unvaccinated: Negative (<=0.8 AI) RUBEOLA IGG INDEX 7.7 04/11/2017 12:09 PM [facility] Comment: Test Performed by: [address] [address] Blood Collection / Unknown 04/10/2017 10:37 AM ASSISTANT GM OF CONTENT & DELIVERY 04/10/2017 4:18 PM ASSISTANT GM OF CONTENT & DELIVERY External Provider [facility] CHEMISTRY ORDERABLES Fin al Result [facility] * (ABNORMAL) HEPATITIS B SURFACE AB, QUANT (04/10/2017 10:37 AM ASSISTANT GM OF CONTENT & DELIVERY) HEPATITIS B SURF AB,QN 9.2 mlU/mL 04/10/2017 5:05 PM ASSISTANT GM OF CONTENT & DELIVERY [facility] HEPATITIS B SURFACE AB INTERP Non-reacti ve(A) See Interp 04/10/2017 5:05 PM ASSISTANT GM OF CONTENT & DELIVERY [facility] Blood Collection / Unknown 04/10/2017 10:37 AM ASSISTANT GM OF CONTENT & DELIVERY 04/10/2017 4:18 PM ASSISTANT GM OF CONTENT & DELIVERY Narrative [facility] - 04/10/2017 5:05 PM ASSISTANT GM OF CONTENT & DELIVERY Patient does not have immunity to Hepatitis B virus. This assay is used to determine immune status to Hepatitis B as greater than or equal to 10 mIU/mL as per CDC guidelines (MMWR:vol 55: RR-16, 2006). External Provider [facility] CHEMISTRY ORDERABLES Fin al Result [facility]# [id number] [address] [place] [address] documented in this encounter Visit Diagnoses Diagnosis Encounter for pre-employment examination Health examination of defined subpopulation documented in this encounter Additional Health Concerns Infection Onset Date Last Indicated Resolved Time R/O C. diff 07/06/2020 07/06/2020 07/06/2020 2:51 PM CDT documented as of this encounter Care Teams Palliative Nurse Relationship Specialty Start Date End Date Aarti Cid MD [address] [place] [id number] PCP - General Internal Medicine 06/02/17 11/10/24 documented as of this encounter
--- OUTSIDE RECORDS SUMMARY | 2024-12-29 16:55 | XMS_ITS | Clinical Summary ---
Author Organization [facility] [address] Address [address] [place] [address] Care Team Providers Care Knot Borer Name Role Phone Barak Shepherd Primary Care Provider [phone] Allergies Active Allergy Reactions Criticality Noted Date Comments Ciprofloxacin Hives High 01/15/2019 Reaction: HIVES, Iodinated Contrast Media Itching Low 01/15/2019 Reaction: ITCHING Penicillins Hives High 06/02/2017 Sulfa (Sulfonamide Antibiotics) Hives High 05/21 Medications levothyroxine (SYNTHROID) 88 mcg tablet Take 1 tablet (88 mcg total) by mouth brim and crown presser before breakfast 90 tablet 3 11/03/19 25 Active atorvastatin (LIPITOR) 10 mg tablet Take 1 tablet by mouth once daily 100 tablet 12/16/19 25 Active metoprolol XL (TOPROL-XL) 25 mg extended release tablet Take 1 tablet by mouth twice daily 200 tablet 12/17/19 25 Active Additional Information Patient taking differently:25 mg oralDaily, Reported on 12/27/2024 aspirin 81 mg enteric coated tablet Take 1 tablet (81 mg total) by mouth daily 11/12/19 25 Active hydroCHLOROth iazide (HYDRODIURIL) 50 mg tablet Take 1 tablet (50 mg total) by mouth daily 11/22/19 25 Active hydrOXYzine (ATARAX) 25 mg tablet TAKE 1 TABLET BY MOUTH NIGHTLY NEEDED FOR ANXIETY 100 tablet 1 08/13/19 25 025 Discontinued(Th erapy completed) metoprolol XL (TOPROL-XL) 25 mg extended release tablet Take 1 tablet by mouth twice daily 200 tablet 1 08/14/19 25 025 Discontinued atorvastatin (LIPITOR) 10 mg tablet Take 1 tablet by mouth once daily 90 tablet 09/20/19 25 025 Discontinued hydroCHLOROth iazide (HYDRODIURIL) 25 mg tablet Take 1 tablet by mouth once daily 90 tablet 10/13/19 25 025 Discontinued(Al ternate therapy) Active Problems Problem Noted Date Diagnosed Date Essential hypertension 07/14/2024 Gout 07/14/2024 Hyperglycemia 07/14/2024 Hyperlipidemia 07/14/2024 History of colectomy 07/14/2024 Hypothyroidism 07/14/2024 Osteoporosis 05/25/2023 Ventral hernia without obstruction or gangrene 0 06/28/2020 Prediabetes 06/28/2019 History of partial colectomy 07/31/2017 Thyroid disease 06/05/2017 Encounters Date Type Department Care Team Description 12/29/2024 Results Follow-Up [facility] Medicine [address] [phone] Barak Shepherd PA XR Ribs Left 2 Views 12/29/2024 Orders Only [address] [phone] Barak Shepherd PA Rib pain on left side 12/29/2024 Telephone [facility] [address] [phone] Barak Shepherd PA Test Results 12/27/2024 3:00 PM CDT Office Visit [facility] Medicine [address] [phone] Barak Shepherd PA Annual physical exam (Primary Dx); Rib pain on left side; Hypothyroidism, unspecified type; Prediabetes; Mixed hyperlipidemia 12/27/2024 Telephone [facility] Medicine [address] [phone] Barak Shepherd PA Medical Question/Miscellaneou s 11/21/2024 Telephone [facility] Family Medicine 200 [facility] [address] [place] [address] Barak Shepherd PA 11/11/2024 Orders Only [facility] Health Information Management [address] [place] [address] Scanning, Provider 11/02/2024 Orders Only [facility] [address] [facility] [address] [place] [address] Barak Shepherd PA Hypothyroidism, unspecified type (Primary Dx) 11/02/2024 Nurse Triage [facility] [address] [facility] [address] [place] [address] Barak Shepherd PA 10/11/2024 Results Follow-Up [facility] [address] [facility] [address] [place] [address] Barak Shepherd PA SCREENING MAMMOGRAM BILATERAL W JAYASHREE from Last 3 Months Immunizations Immunization Administration Dates Next Due Influenza, Quadrivalent, Nati l Culture-based MDCK, Preservative Free, Antibiotic Free, Intramuscular 01/29/2022 Influenza, Quadrivalent, Rec ombinant, Egg Free, Preservative Free, Intramuscular 01/15/2023 Influenza, Trivalent, High D ose, Split, Preservative Free, Intramuscular 02/12/2024 Influenza, Trivalent, IM (MDV) ,12/19/2020,01/24/2020,01/18,01/05/2019,02/18/2018,01/08/2018 ,04/10/2017 Influenza, Unspecified 12/27/2024(Deferr ed: Patient Refused),06/17/2023(Deferred: Patient Refused),06/20/2022(Deferred: Patient Refused) ZOSTER Recombinant 01/06/2021,10/13/2020 Surgical History Surgery Date Site/Laterality Comments APPENDECTOMY BREAST SURGERY CHOLECYSTECTOMY HYSTERECTOMY TUBAL LIGATION ABDOMINAL SURGERY COLON SURGERY Medical History Medical History Date Comments Anxiety Osteoporosis Cancer (HCC) Heart disease Thyroid disease Family History Medical History Relation Name Comments Heart attack Father abisai Heart disease Father abisai Hypertension Father abisai Cancer Mother tyson Relation Name Status Comments Father abisai Mother tyson Social History Tobacco Use Types Packs/Day Years Used Date Smoking Tobacco: Never Smokeless Tobacco: Never Tobacco Cessation:Counseling Given: Not Answered Alcohol Use Standard Drinks/Week Comments Never 0 [...] on file 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 Gender Identity Not on file Sexual Orientation Not on file Obstetrics History Last Filed Vital Signs Vital Sign Reading Time Taken Comments Blood Pressure 110/70 12/27/2024 2:48 PM CDT Pulse 72 12/27/2024 2:48 PM CDT Temperature - - Respiratory Rate 18 12/27/2024 2:48 PM CDT Oxygen Saturation 99% 12/27/2024 2:48 PM CDT Inhaled Oxygen Concentration - - Weight 56.7 kg (125 lb) 12/27/2024 2:48 PM CDT Height 167.6 cm (5' 6) 12/27/2024 2:48 PM CDT Body Mass Index 20.18 12/27/2024 2:48 PM CDT Plan of Treatment Health Maintenance Due Date Last Done Comments Hepatitis C Screening 1960 DTaP/Tdap/Td Vaccine (1 - Tdap) 1969 Hepatitis B Screening 1976 Pneumococcal vaccine 65+ (1 of 1 - PCV) 2008 Osteoporosis Screening-Bone Density Scan 02/04/2016 02/03/2014 Influenza Vaccine (#1) 2024 4, 01/15/2023, 01/29/2022, Additional history exists Breast Cancer Screening-Mammogram 10/07/2025 10/07/2024, 10/07/2024, 10/07/2024, Additional history exists Covid-19 Vaccine ( season) 2025 01/17/2021, 04/29/2020, 04/08/2020 Postponed from 12/19/2024 (Patient declined, but will receive in the future) Depression Screening 12/27/2025 12/27/2024, 10/01/2023, 05/25/2023 Fall Risk Assessment 12/27/2025 12/27/2024, 10/01/19 24 Well Visit 65+ 12/27/2025 12/27/2024, 12/2024, 10/01/2023 Colon Cancer Screening-DNA Stool 07/06/2026 07/07/2023 Zoster Vaccine Completed 01/06/2021, 10/13/2020 Procedures Procedure Name Priority Date/Time Associated Diagnosis Comments XR RIBS LEFT 2 VIEWS Schedule Routine, Read Routine (OP Routine) 12/28/2024 10:01 AM CDT Rib pain on left side TSH Routine 12/23/2024 2:19 PM CDT Hypothyroidism, unspecified type T4, FREE Routine 12/23/2024 2:19 PM CDT Hypothyroidism, unspecified type SCAN - LABS 11/11/2024 SCREENING MAMMOGRAM BILATERAL W JAYASHREE Schedule Routine, Read Routine (OP Routine) 10/07/2024 8:43 AM CDT Encounter for screening mammogram for malignant neoplasm of breast STOOL DNA COLOGUARD Routine 07/07/2023 8:10 PM CDT Colon cancer screening from Last 3 Months or Most Recently Relevant to Health Maintenance Results * XR Ribs Left 2 Views (12/28/2024 10:01 AM CDT) Anatomical Region Laterality Modality Rib, Chest Left Radiographic Melissa ging us Barak [facility] IMG XR PROCEDURES Edited Re sult - Final * (ABNORMAL) TSH (12/23/2024 2:19 PM CDT) [facility] TSH 0.297(L) 0.450 - 4.500 uIU/mL [facility] - 01 Blood 12/23/2024 2:19 PM CDT 12/23/2024 Narrative [facility] - 12/24/2024 10:36 AM CDT Performed at: [address] [place] [id number] Wool Broker: Miah Sousa PhD, Phone: [phone] us Barak [facility] LAB BLOOD ORDERABLES Final Result Performing Organization Address [facility] de Phone Number [facility] - * T4, free (12/23/2024 2:19 PM CDT) [facility] T4,Free(Direct) 1.76 0.82 - 1.77 ng/dL [facility] - 01 Blood 12/23/2024 2:19 PM CDT 12/23/2024 Narrative [facility] - 12/24/2024 10:36 AM CDT Performed at: [address] [place] [id number] Wool Broker: Miah Sousa PhD, Phone: [phone] us Barak [facility] BLOOD ORDERABLES Final Result Performing Organization Address City/[facility] Co de Phone Number [facility] - * SCAN - LABS (11/11/2024) us Provider Scanning Final Result * SCREENING MAMMOGRAM BILATERAL W JAYASHREE (10/07/2024 8:43 AM CDT) Anatomical Region Laterality Modality Breast Bilateral Mammography us Barak [facility] IMG MAMMO PROCEDURES Final Result * Stool DNA - Cologuard (07/07/2023 8:10 PM CDT) Stool DNA - Cologuard Negative Negative [facility] (CLIA #:[id number]) Comment: NEGATIVE TEST RESULT. A negative Cologuard result indicates a low likelihood that a colorectal cancer (CRC) or advanced adenoma (adenomatous polyps with more advanced pre-malignant features) is present. The chance that a person with a negative Cologuard test has a colorectal cancer is less than 1 in 1500 (negative predictive value >99.9%) or has an advanced adenoma is less than 5.3% (negative predictive value 94.7%). These data are based on a prospective cross-sectional study of 10,000 individuals at average risk for colorectal cancer who were screened with both Cologuard and colonoscopy. (Kiarra Kline. et al, N Engl J Med 2014;370(14):8803-4488) The normal value (reference range) for this assay is negative. COLOGUARD RE-SCREENING RECOMMENDATION: Periodic colorectal cancer screening is an important part of preventive healthcare for asymptomatic individuals at average risk for colorectal cancer. Following a negative Cologuard result, the [place] Cancer Society and U.S. Multi-Society Task Force screening guidelines recommend a Cologuard re-screening interval of 3 years. References: [place] Cancer Society Guideline for Colorectal Cancer Screening: https://www.cancer.org/cancer/pkbdj-aighwa-nuhznh/vdlysobld-acvytivwg-ygwkcbi/ac s-rec ommendations.html.; Wilmer VALENCIA, Lynne HERNÁNDEZ, Shay ArevaloK, Colorectal Cancer Screening: Recommendations for Physicians and Patients from the U.S. Multi-Society Task Force on Colorectal Cancer Screening , Am J Gastroenterology 2017; 112:7636-7205. TEST DESCRIPTION: Composite algorithmic analysis of stool DNA-biomarkers with hemoglobin immunoassay. Quantitative values of individual biomarkers are not reportable and are not associated with individual biomarker result reference ranges. Cologuard is intended for colorectal cancer screening of adults of either sex, 45 years or older, who are at average-risk for colorectal cancer (CRC). Cologuard has been approved for use by the U.S. FDA. The performance of Cologuard was established in a cross sectional study of average-risk adults aged 50-84. Cologuard performance in patients ages 45 to 49 years was estimated by sub-group analysis of near-age groups. Colonoscopies performed for a positive result may find as the most clinically significant lesion: colorectal cancer [4.0%], advanced adenoma (including sessile serrated polyps greater than or equal to 1cm diameter) [20%] or non- advanced adenoma [31%]; or no colorectal neoplasia [45%]. These estimates are derived from a prospective cross-sectional screening study of 10,000 individuals at average risk for colorectal cancer who were screened with both Cologuard and colonoscopy. (Kiarra Anne et al, N Engl J Med 2014;370(14):8939-5473.) Cologuard may produce a false negative or false positive result (no colorectal cancer or precancerous polyp present at colonoscopy follow up). A negative Cologuard test result does not guarantee the absence of CRC or advanced adenoma (pre-cancer). The current Cologuard screening interval is every 3 years. ([place] Cancer Society and U.S. Multi-Society Task Force). Cologuard performance data in a 10,000 patient pivotal study using colonoscopy as the reference method can be accessed at the following location: www.Iotera/results. Additional description of the Cologuard test process, warnings and precautions can be found at www.Rallywareoguard.com. Stool 07/07/2023 8:10 PM CDT 07/09/2023 9:45 AM CDT Barak [facility] BODY FLUIDS AND STOOLS ORDERABLES Final Result Performing Organization Address City/State/[facility] Co de Phone Number [employer] ([employer]) (CLIA #:[id number]) [place] [address] from Last 3 Months or Most Recently Relevant to Health Maintenance Additional Health Concerns Infection Onset Date Last Indicated C. difficile Comment:AUTOMATED NOTE (ADD): C. Difficile - contact, [facility], [id number], ThuApr 07 09:45:41 LOAN PROCESSING SUPERVISOR 201004/04/2011 04/04/2011 Insurance [facility] MEDICARE [facility] Address: [address] [address] Care Teams Knot Borer Relationship Specialty Start Date End Date Barak Shepherd PA [address] [address] PCP - General Family Medicine 05/25/23
--- OUTSIDE RECORDS SUMMARY | 2024-12-29 16:55 | XMS_ITS | Encounter Summary ---
Author Organization [facility] Healthcare Address [address] [place] [address] Care Team Providers Care Seals Engraver Name Role Phone Barak Shepherd Primary Care Provider [phone] Encounter Details Date Type Department Care Team (Late st Contact Info) Description 12/29/2024 Orders Only [facility] Family Medicine [address] [place] [address] Barak Shepherd PA [address] [place] [address] Rib pain on left side Social History Tobacco Use Types Packs/Day Years [...] on file 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 Gender Identity Not on file Sexual Orientation Not on file documented as of this encounter Plan of Treatment Not on file documented as of this encounter Procedures Procedure Name Priority Date/Time Associated Diagnosis Comments XR RIBS LEFT 2 VIEWS Schedule Routine, Read Routine (OP Routine) 12/28/2024 10:01 AM CDT Rib pain on left side documented in this encounter Results * XR Ribs Left 2 Views (12/28/2024 10:01 AM CDT) Anatomical Region Laterality Modality Rib, Chest Left Radiographic Melissa ging us Barak [facility] IM[facility] XR PROCEDURES Edited Re sult - Final documented in this encounter Visit Diagnoses Diagnosis Rib pain on left side documented in this encounter Additional Health Concerns Infection Onset Date Last Indicated Resolved Time C. difficile Comment:AUTOMATED NOTE (ADD): C. 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
--- OUTSIDE RECORDS SUMMARY | 2024-12-29 16:55 | XMS_ITS | Encounter Summary ---
Author Organization [facility] Address [address] [place] [address] Care Team Providers Care Communications Coordinator Name Role Phone Unavailable Primary Care Provider Unavailabl e Encounter Details Date Type Department Care Team (Late st Contact Info) Description 12/27/2024 External Device Data [facility] ABSTRACTION Provider, Abstract NO ADDRESS ON FILE Social History Tobacco Use Types Packs/Day Years [...] Description 12/30/2024 3:00 PM CDT Office Visit [facility] - [address] [place] [address] documented as of this encounter Visit Diagnoses Not on filedocumented in this encounter
--- OUTSIDE RECORDS SUMMARY | 2024-12-29 16:55 | XMS_ITS | Patient Health Record ---
Author Organization [facility] Address [address] [facility] [place] [address] Care Team Providers Care Director Process Improvement Name Role Phone Omar Villalobos Unavailable [phone] REASON FOR REFERRAL No Information MEDICATIONS Medication SIG (Take, Route, Frequency, Duration) Notes Start Date End Date Status Licart 1.3 % 1 patch as needed Ex ternally Once a day for 30 days 02/17/2023 Active Voltaren 1 % as directed External ly as directed for 30 days 02/17/2023 Unknown Encounters Encounter Location Date Provider Diagnosis [facility] [address] [place] [address] 06/15/2024 Omar Villalobos PLAN OF TREATMENT No Information
--- OUTSIDE RECORDS SUMMARY | 2024-12-29 16:55 | XMS_ITS | Encounter Summary ---
Author Organization [facility] Address [address] [place] [address] Care Team Providers Care Administrative Personal Assistant Name Role Phone Aarti Cid MD Primary Care Provider [phone] Reason for Visit * Reason Comments Med Refill Encounter Details Date Type Department Care Team (Late st Contact Info) Description 03/11/2022 Telephone [facility] - [address] [place] [phone] Aarti Cid MD [address] [place] [address] [address] [place] [address] Med Refill Social History Tobacco Use Types Packs/Day Years [...] encounter Miscellaneous Notes * Telephone Encounter - Aarti Cid MD - 03/11/2022 10:34 PM ADMISSIONS NURSE Please contact patient she needs to be seen this calendar year for office visit SSIONS NURSE * Telephone Encounter - Verenice Duran RN - 03/11/2022 8:26 AM CST Called and left vm for pt. To make an appointment before we can refill medications. SSIONS NURSE documented in this encounter Plan of Treatment Upcoming Encounters Date Type Department Care Team (Late st Contact Info) Description 12/30/2024 3:00 PM CDT Office Visit [facility] - [address] [facility] [address] [place] [address] documented as of this encounter Visit Diagnoses Not on filedocumented in this encounter Care Teams Administrative Personal Assistant Relationship Specialty Start Date End Date Aarti Cid MD [address] [place] [address] PCP - General Internal Medicine 06/02/17 11/10/24 documented as of this encounter
[2024-12-29 17:41] LABS: Hematocrit 34.0 % (37.0-47.0); Hemoglobin 11.4 g/dL (12.0-15.0); Immature Granulocyte Percent A 0.2 % (0-0.5); Lymphocytes Absolute Auto 2.71 K/mm3 (0.9-3.2); Mean Corpuscular HGB Conc 33.5 g/dl (32-36); Mean Corpuscular Hemoglobin 31.5 pg (26-34); Mean Corpuscular Volume 93.9 fl (80-100); Nucleated Red Blood Cells Absolute Auto 0.000 K/mm3 (0.0-0.012); Nucleated Red Blood Cells Perc 0.0 % (0.0-0.2); Platelet Count Result 269 k/mm3 (150-375); Red Blood Count 3.62 M/mm3 (4.2-5.4); White Blood Count 6.0 K/mm3 (4.5-10.0)
--- NOTE | 2024-12-29 17:43 | ED.ABDPAIN ---
HPI - Abdominal Pain General Chief Complaint: Abdominal Pain Stated Complaint: LLQ pain, diarrhea, weight loss Time Seen by Provider: 12/29/24 17:10 Source: patient Mode of arrival: ambulatory Limitations: no limitations History of Present Illness HPI narrative: This is a 64 year old female that presents to the ER for abdominal pain. Reports left sided abdominal pain. Also reports loose stools. Reports this has been ongoing for months. Also reports unintentional weight loss over the last year. Denies fevers, vomiting. Related Data Allergies Allergy/AdvReac Type Severity Reaction Status Date / Time Sulfa (Sulfonamide Allergy Unknown Verified 02/20/14 11:52 Antibiotics) Review of Systems Review of Systems: All systems reviewed & are unremarkable except as noted in HPI and below PMFSH Past Medical History Medical History (Updated 12/29/24 @ 20:30 by Conchita Kelley PA-C) Hypertension Hypothyroidism Hyperlipidemia Family History Family History (Updated 12/15/13 @ 07:13 by DOCTOR UNKNOWN) Other Family history of malignant neoplasm Social History Social History Smoking status: Never smoker Alcohol intake: current Exam Narrative: GENERAL: Well-appearing, well-nourished, and in no acute distress. HEAD: Normocephalic, atraumatic. EYES: EOMI. CHEST: Clear to auscultation. No respiratory distress. No wheezes rales or rhonchi HEART: Regular rate and rhythm. No murmur heard. Normal peripheral pulses. ABDOMEN: Soft, nontender, nondistended, normal active bowel sounds. EXTREMITIES: Normal range of motion. No edema. SKIN: Warm, dry, no rash. NEURO: No focal deficits. Alert and oriented x3. PSYCH: Normal mood and affect Course Course Emergency Course: Patient and family updated on workup and agree with plan of care Vital Signs Vital signs: Vital Signs Temperature 98.9 F 12/29/24 16:30 Pulse Rate 78 12/29/24 16:30 Respiratory Rate 18 12/29/24 16:30 Blood Pressure 164/73 H 12/29/24 16:30 Pulse Oximetry 96 12/29/24 16:30 Oxygen Delivery Room Air 12/29/24 16:30 Temperature 98.9 F 12/29/24 16:30 Pulse Rate 71 12/29/24 19:17 Respiratory Rate 15 12/29/24 19:17 Blood Pressure 144/69 H 12/29/24 19:17 Pulse Oximetry 99 12/29/24 19:17 Oxygen Delivery Room Air 12/29/24 16:30 MDM - Abdominal Pain MDM Narrative Medical decision making narrative: Patient presents to the ER for abdominal pain, diarrhea, weight loss. Her vitals are stable. CBC without leukocytosis. Shows normocytic anemia with hemoglobin of 11.4. Metabolic with mild hypokalemia. Urine with possible evidence of infection, although patient does not have any urinary symptoms. This will be sent for culture. Patient does not wish to be presumptively started on antibiotics. CT abdomen and pelvis without acute findings. Potassium replaced. Patient and family updated on workup and agree with plan of care. She is to follow up with Gastroenterology for further evaluation. She was given warnings to return to the ER Differential Diagnosis Differential diagnosis: Likely constipation, diverticulitis, pancreatitis and other (colon cancer) Lab Data Attestation: I reviewed the patient's lab results. 12/29/24 17:32 12/29/24 17:32 Labs: Lab Results 12/29/24 12/29/24 Range/Units 17:32 19:15 WBC 6.0 (4.5-10.0) K/mm3 RBC 3.62 L (4.2-5.4) M/mm3 Hgb 11.4 L (12.0-15.0) g/dL Hct 34.0 L (37.0-47.0) % MCV 93.9 (80-100) fl MCH 31.5 (26-34) pg MCHC 33.5 (32-36) g/dl RDW 12.1 (11.5-14.5) % Plt Count 269 (150-375) k/mm3 MPV 9.2 (7.4-10.4) fl Immature Gran % (Auto) 0.2 (0-0.5) % Neut % (Auto) 43.6 L (45.5-73.1) % Lymph % (Auto) 44.9 H (18.3-44.2) % [place] % (Auto) 9.3 H (2.6-8.5) % Eos % (Auto) 1.5 (0-4.4) % Baso % (Auto) 0.5 (0.2-1.2) % Lymph # (Auto) 2.71 (0.9-3.2) K/mm3 [place] # (Auto) 0.6 (0.1-0.6) K/mm3 Eos # (Auto) 0.1 (0-0.3) K/mm3 Baso # (Auto) 0.0 (0.0-0.1) K/mm3 Abs Immat Gran (auto) 0.01 (0.00-0.031) K/mm3 Absolute Neuts (auto) 2.6 (1.3-6.7) K/mm3 Absolute Nucleated RBC 0.000 (0.0-0.012) K/mm3 Nucleated RBC % 0.0 (0.0-0.2) % Sodium 137 (137-145) mmol/L Potassium 3.1 L (3.4-5.0) mmol/L Chloride 100 (98-107) mmol/L Carbon Dioxide 30 (22-30) mmol/L Anion Gap 7 (4-12) mmol/L BUN 24 H (7-17) mg/dL Creatinine 1.00 (0.7-1.0) mg/dL Estim Creat Clear Calc 44 ml/min Estimated GFR 55 L (59 - ) Glucose 93 (65-110) mg/dL Calcium 10.1 (8.4-10.2) mg/dL Magnesium 1.9 (1.6-2.3) mg/dL Total Bilirubin 0.4 (0.2-1.3) mg/dL AST 33 (14-36) U/L ALT 19 (6-35) U/L Alkaline Phosphatase 57 (38-126) U/L Total Protein 7.3 (6.3-8.2) g/dL Albumin 4.4 (3.5-5.1) g/dL Lipase 291 (23-300) U/L Urine Color Yellow (Yellow) Urine Appearance Cloudy H (Clear) Urine pH 5.5 (5.0-9.0) Ur Specific [place] 1.029 (1.001-1.035) Urine Protein Trace (Negative) mg/dL Urine Glucose (UA) Negative (Negative) mg/dL Urine Ketones Trace H (Negative) mg/dL Ur Blood (Man) Negative (Negative) Urine Nitrate Negative (Negative) Urine Bilirubin Negative (Negative) Urine Urobilinogen 0.2 (<2.0) mg/dL Leukocyte Esterase Rfl 2+ H (Negative) DENA/UL Urine RBC 0-2 (0-2) /hpf Urine WBC >100 H (0-3) /hpf Ur Squamous Epith Cells None seen (Few) /hpf Urine Bacteria Rare /hpf Urine Casts 3-5 Imaging Data Radiologist's impression: ITS Impressions Abdomen/Pelvis CT 12/29/24 18:59 IMPRESSION: 1. No acute abdominal abnormality. Critical Care Time Critical Care Time Critical Care Time: No Discharge Plan Discharge Clinical Impression: Hypokalemia, Abnormal urinalysis Abdominal pain Qualifiers: Abdominal location: left upper quadrant Qualified Code(s): R10.12 - Left upper quadrant pain Diarrhea Qualifiers: Diarrhea type: unspecified type Qualified Code(s): R19.7 - Diarrhea, unspecified Patient Disposition: Home Condition: Stable Instructions: Hypokalemia (ED), Acute Diarrhea (ED), Abdominal Pain (ED) Additional Instructions: Return to the ER if you experience fever, abdominal pain with nausea and vomiting, you are unable to keep down liquids or solids, blood in the stool, or any other symptoms that are concerning to you Your CT scan of your abdomen and pelvis today was normal You had some white blood cells in your urine, but since you are not having any symptoms we will let this go for culture You can take Dicyclomine as needed for pain Your potassium was mildly low today. Will send a couple more days of replacement to your pharmacy Follow up with gastroenterology for further evaluation Patient Language: Mont[place] Prescriptions: New dicyclomine 20 mg tablet 20 mg PO TID PRN (Reason: abdominal pain) Qty: 14 0RF potassium chloride 20 mEq packet 20 meq PO DAILY 4 Days Qty: 4 0RF Follow-up/Referrals: PHYSICIAN NOT ON STAFF,NONSTAFF [Non-Staff] Jose Alfredo Cifuentes MD [Physician, Gastroenterology]
[2024-12-29 17:52] LABS: Alanine Aminotransferase 19 U/L (6-35); Albumin Level 4.4 g/dL (3.5-5.1); Alkaline Phosphatase 57 U/L (38-126); Anion Gap 7 mmol/L (4-12); Aspartate Amino Transferase 33 U/L (14-36); Bilirubin,Total 0.4 mg/dL (0.2-1.3); Blood Urea Nitrogen 24 mg/dL (7-17); Calcium 10.1 mg/dL (8.4-10.2); Carbon Dioxide 30 mmol/L (22-30); Chloride 100 mmol/L (98-107); Estimated CRCL calculation 44 ml/min; Estimated Glomerular Filt Rate 55; Glucose 93 mg/dL (65-110); Lipase 291 U/L (23-300); Potassium 3.1 mmol/L (3.4-5.0); Sodium 137 mmol/L (137-145); Total Protein 7.3 g/dL (6.3-8.2)
[2024-12-29 18:30] LABS: Magnesium 1.9 mg/dL (1.6-2.3)
--- NOTE | 2024-12-29 19:22 | PC.NURSE ---
Received report from WILLIE Harper for cont. of care. Pt lying on stretcher respirations even and unlabored. Pt c/o L upper abdominal pain, non radiating. Pt on cont. cardiac and pulse oximeter monitoring. Pt updated on plan of care, VS WNL
[2024-12-29 19:27] LABS: Add Urine Microscopic? YES; Appearance Urine Cloudy (Clear); Glucose Urine UA Negative (Negative); Leukocyte Esterase Ur 2+ LEU/UL (Negative); Nitrate Urine Negative (Negative); Specific Grav Ur 1.029 (1.001-1.035)
[2024-12-29] MEDS: POTASSIUM CHLORIDE 20 MEQ ER TABLET 40 MEQ PO (20:03)
== END 2024-12-29 20:55 | disposition home or self-care (01) ==
PROVIDERS: Emergency Medicine; Emergency Provider Physician Assistant
DX: E87.6 Hypokalemia (principal); R82.998 Other abnormal findings in urine; R10.12 Left upper quadrant pain; R19.7 Diarrhea, unspecified; E03.9 Hypothyroidism, unspecified; E78.5 Hyperlipidemia, unspecified; I10 Essential (primary) hypertension
CPT/HCPCS: 36415; 74176; 80053; 81001; 83690; 83735; 85025; 87086; 99284; A9270